=== PATIENT | female | born 1970 | race Caucasian/White ===

== ENCOUNTER 2024-12-15 14:51 | Outpatient (AMB) | payer OTHER, SELFPAY ==
--- NOTE | 2024-12-15 14:51 | A.OFFPC_ITS ---
Intake Visit Reasons: New Appt New Patient requesitng an PE Intake Note: Patient is a new patient here to establish care for DM, HTN, Cholesterol. Transferring care from [facility] (in [place]). Medical records have not been requested and have not received. Rn Traveling Required: No Internal Medicine Physician Assistant: Not Required per policy Accompanied by: Self / Same As Patient Allergies No Known Allergies Allergy (Verified 12/15/24 15:11) Medication List - Last Reconciled 12/15/24 by Brodie Stern MD blood-glucose sensor (Dexcom G7 Sensor device) As directed doxycycline monohydrate 100 mg PO DAILY dulaglutide (Trulicity) 1.5 mg subcut QWEEK ezetimibe 10 mg PO DAILY lisinopril 2.5 mg PO DAILY metformin 1,000 mg PO BID pravastatin 20 mg PO DAILY Tobacco use date assessed: 12/15/24 Dental Screening Dental Screen Date: 12/15/24 Did you have a dental visit in the last 12 months?: Yes Did you have a dental problem in the last 6 months where you did not have access to dental care?: No Was dental information given to patient?: Patient has dentist HPI New Appt New Patient requesitng an PE HPI Details 54 yr old female transferring her care f [facility]. She has history of Type 2 DM, last A1c was 6.7. 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 On Doxcycline for acne. Uptodate on Mammogram and Colonoscopy, Works in the [employer] system. Has had back surgery and Neurobiologist procedure for cervical cancer. [facility] Medical History (Updated 12/15/24 @ 15:25 by Brodie Stern MD) DM (diabetes mellitus) type II uncontrolled with eye manifestation Surgical History History of back surgery Social History Housing: Apartment Alcohol intake: current Alcohol intake frequency: holidays/special occasions only Patient Tobacco Use Status: Never used Tobacco e-Cigarette/Vaping Use: Never Used Second Hand Smoke Exposure: No service: No Current occupational status: employed Current occupation: [employer] Cognitive needs: No Hearing needs: No Vision needs: Yes (Glasses) Questionnaire PHQ-9 Over the last 2 weeks, how often have you been bothered by any of the following problems? 1. Little interest or pleasure in doing things: not at all 2. Feeling down, depressed, or hopeless: not at all 3. Trouble falling or staying asleep, or sleeping too much: not at all 4. Feeling tired or having little energy: not at all 5. Poor appetite or overeating: not at all 6. Feeling bad about yourself - or that you are a failure or have let yourself or your family down: not at all 7. Trouble concentrating on things, such as reading the newspaper or watching television: not at all 8. Moving or speaking so slowly that other people could have noticed. Or the opposite - being so fidgety or restless that you have been moving around a lot more than usual: not at all 9. Thoughts that you would be better off or of hurting yourself in some way: not at all Total score: 0 Depression Screening Interpretation: Negative Depression Screening Done: Yes Source: Developed by Drs. Ezio Coffey, Marion Ambrocio, John García and colleagues, with an educational rebecca from [employer]. Thrive Questionnaire Date Thrive assessed: 12/15/24 I am a: Patient What is your living situation today?: I have a steady place to live Within the past 12 months, did the food you bought not last and you didn't have the money to get more?: Never true Within the past 12 months, did you worry whether your food would run out before you got money to buy more?: Never true Do you have trouble paying for medicines?: No Do you have trouble getting transportation to medical appointments?: No Do you have trouble paying your heating and electricity bill?: No Do you have trouble taking care of your child, family member or friend?: No Do you have trouble with day-to-day activities such as bathing, preparing meals, shopping, managing finances, etc.?: No Are you currently unemployed and looking for a job?: No Are you interested in more education?: No Please select the resources that you would like help with: None Currently or been in a relationship where the following occur: No concerns reported THRIVE Score: 0 AUDIT C Alcohol Use Questionnaire (AUDIT-C) 1. How often do you have a drink containing alcohol?: Monthly or less 2. How many drinks containing alcohol do you have on a typical day when you are drinking?: 1 or 2 Total Score: 1 KAYE-7 AMB Questionnaire KAYE-7 Date KAYE - 7 assessed: 12/15/24 Feeling nervous, anxious, or on edge: 0 = Not at all Not being able to stop or control worryin = Not at all Worrying too much about different things: 0 = Not at all Trouble relaxin = Not at all Being so restless that it is hard to sit still: 0 = Not at all Becoming easily annoyed or irritable: 0 = Not at all Feeling afraid as if something awful might happen: 0 = Not at all Total KAYE-7 score (0-4 normal; 5-9 mild; 10-14 moderate; 15-21 severe): 0 Source: Developed by Drs. Ezio Coffey, Marion Ambrocio, John García and colleagues, with an educational rebecca from [employer]. Physical exam (Primary Care) Tobacco/Smoking Status: Tobacco use Status Patient Tobacco Use Status Never used Tobacco 12/15/24 15:01 Depression Screening Interpretation: Negative Currently or been in a relationship where the following occur: No concerns reported Telehealth Telehealth Telehealth Platform: [facility] Location of provider rendering services: practice address Location of patient: address on file Patient Identification confirmed using: Name, : Yes Telehealth method: video Patient verbally consented to treatment: Yes Patient verbally consented to billing insurance company: Yes Patient informed of any privacy concerns related to visit: Yes Coding Level of Care Code Tele New Pt Level 4 (07444) Diagnoses DM (diabetes mellitus) type II uncontrolled with eye manifestation Assessment & Plan Assessment & Plan (1) DM (diabetes mellitus) type II uncontrolled with eye manifestation: Category: Medical Plan: Medication list revd with patient. Will get her old records from [facility].
--- OUTSIDE RECORDS SUMMARY | 2024-12-15 18:43 | XMS_ITS | Encounter Summary ---
Author Organization [facility] Address [address] [place] [address] Care Team Providers Care Mental Telepathist Name Role Phone Physician, No Pcp Primary Care Provider Unavaila ble Reason for Visit * Imaging (Routine) - Pending Review Specialty Diagnoses / Procedures Referred By Edi miles Referred To Contact Radiology Diagnoses Encounter for screening mammogram for breast cancer Procedures MG Mammo Digital Screening w Sean bilat MG Mammo Digital Screening w Sean bilat Colleen Alanis CNM [address] [place] [address] [facility] Referral ID Status Reason Start Date Expiration Date V isits Requested Visits Authorized [id number] Pending Review 09/01/2024 09/01/2025 1 1 Encounter Details Date Type Department Care Team (Latest Contact Info) Description 12/10/2024 9:43 AM EST - 12/10/2024 11:59 PM [facility] Hospital Encounter Radiology Department - [address] [address] Encounter for screening mammogram for breast cancer Discharge Disposition: Home or Self Care Social History Tobacco Use Types Packs/Day Years Used Date Smoking Tobacco: Former Cigarettes 0.5 34.8 0 11/16/1982 - 09/12/2017 Smokeless Tobacco: Former Alcohol Use Standard Drinks/Week Comments Yes 0 (1 standard drink = 0.6 oz pur e alcohol) Sex and Gender Information Value Date Recorded Sex Assigned at Not on file Gender Identity Not on file Sexual Orientation Not on file documented as of this encounter Medications at Time of Discharge Medication Sig Dispensed Refills Start Date End Date albuterol HFA (PROAIR HFA ; PROVENTIL HFA ; VENTOLIN HFA) 90 mcg/actuation inhaler Inhale 2 Puffs into the lungs every 4 hours as needed for Cough or Wheezing. blood sugar diagnostic (FreeStyle Lite Strips) test strip 1 Strip by In Vitro route daily. blood-glucose sensor (DEXCOM G7 SENSOR MISC) 1 Each by Does not apply route See Admin Instructions. clindamycin phosphate 1 % gel, once daily Apply thin layer to face twice daily cyanocobalamin (VITAMIN B-12) 1,000 mcg/mL injection Inject 1 mL into the muscle every 30 days. diclofenac (Voltaren Arthritis Pain) 1 % topical gel Place 2 g onto the skin 3 times daily as needed for Other (pain) for up to 7 days. dulaglutide (Trulicity) 1.5 mg/0.5 mL pen injector injection Inject 1.5 mg into the skin once a week. ezetimibe (ZETIA) 10 mg tablet Take 1 tablet (10 mg total) by mouth 1 (one) time each day. 90 tablet 11/24/2024 fluticasone propionate (FLONASE) 50 mcg/actuation nasal spray 1 [place] by Each Nare route daily for 90 days. FREESTYLE LANCETS MISC Use with glucometer to check glucose level. 01/29/2022 isopropyl alcohoL 70 % swab 1 Each by Does not apply route daily. lisinopriL (PRINIVIL,ZESTRIL) 2.5 mg tablet Take 1 tablet (2.5 mg total) by mouth 1 (one) time each day. 90 tablet 11/24/2024 pravastatin (PRAVACHOL) 20 mg tablet Take 1 tablet (20 mg total) by mouth 1 (one) time each day. 90 tablet 11/24/2024 Trulicity 1.5 mg/0.5 mL pen injector injection INJECT 1.5 MG SUBCUTANEOUSLY ONCE A WEEK 6 mL 1 10/05/2024 documented as of this encounter Discharge Disposition Disposition Code Departure Means Destination Home or Self Care documented in this encounter Plan of Treatment Upcoming Encounters Date Type Department Care Team (Late st Contact Info) Description 01/04/2025 9:45 AM EST [facility] [address] [place] [address] Colleen Alanis CNM [address] [place] [address] 01/06/2025 11:20 AM EST Office Visit Endocrinology - [address] [phone] Marjorie Cedeno PA [address] [place] [address] 04/25/2025 9:00 AM EDT Office Visit Nephrology - [facility] [address] [place] [address] Jan Villeda MD [address] [address] documented as of this encounter Procedures Procedure Name Priority Date/Time Associated Diagnosis Comments MG MAMMO DIGITAL SCREENING W SEAN BILAT Routine 12/10/2024 9:58 AM EST Encounter for screening mammogram for breast cancer documented in this encounter Results * MG Mammo Digital Screening w Sean bilat (12/10/2024 9:58 AM EST) Anatomical Region Laterality Modality Breast Bilateral Mammography 12/12/2024 5:04 PM EST Impressions 12/12/2024 5:08 PM EST 1. No mammographic evidence of malignancy 2. Scattered fibroglandular tissue BI-RADS CATEGORY: 2 - BENIGN RECOMMENDATION: Screening bilateral mammogram is recommended in 1 year. Mammo Location: [facility], [address] [place] [address], [id number], . -------- FINAL REPORT -------- Dictated By: Ky Valenzuela Dictated Date: 12/12/2024 17:04 ET Assigned Physician: Ky Valenzuela Reviewed and Electronically Signed By: Ky Valenzuela Signed Date: 12/12/2024 17:08 ET Workstation ID: [id number] Transcribed By: Self Edit Transcribed Date: 12/12/2024 17:04 ET Narrative 12/12/2024 5:08 PM EST A BILATERAL DIGITAL 3D SCREENING MAMMOGRAPHY HISTORY: Routine screening. ??No family history of breast cancer. COMPARISON: Multiple priors dating back to 06/25/2020 Technique: Bilateral full field digital mammography (3D) was performed using standard CC and MLO projections CAD ??was used to evaluate this mammogram. FINDINGS: Right: No suspicious masses, groups of microcalcification or areas of architectural distortion identified. Stable typically benign parenchymal asymmetries. Left: No suspicious masses, groups of microcalcification or areas of architectural distortion identified. Stable typically benign parenchymal asymmetries. BREAST DENSITY: B - There are scattered areas of fibroglandular density. Procedure Note Ky Valenzuela MD - 12/12/2024 A BILATERAL DIGITAL 3D SCREENING MAMMOGRAPHY HISTORY: Routine screening. No family history of breast cancer. COMPARISON: Multiple priors dating back to 06/25/2020 Technique: Bilateral full field digital mammography (3D) was performedusing standard CC and MLO projections CAD was used to evaluate this mammogram. FINDINGS: Right: No suspicious masses, groups of microcalcification or areas ofarchitectural distortion identified. Stable typically benign parenchymalasymmetries. Left: No suspicious masses, groups of microcalcification or areas ofarchitectural distortion identified. Stable typically benign parenchymalasymmetries. BREAST DENSITY: B - There are scattered areas of fibroglandular density. IMPRESSION: 1. No mammographic evidence of malignancy 2. Scattered fibroglandular tissue BI-RADS CATEGORY: 2 - BENIGN RECOMMENDATION: Screening bilateral mammogram is recommended in 1 year. Mammo Location: [facility], [address] [place] [address], [id number], . -------- FINAL REPORT -------- Dictated By: Ky Valenzuela Dictated Date: 12/12/2024 17:04 ET Assigned Physician: yK Valenzuela Reviewed and Electronically Signed By: Ky Valenzuela Signed Date: 12/12/2024 17:08 ET Workstation ID: [id number] Transcribed By: Self Edit Transcribed Date: 12/12/2024 17:04 ET Colleen Alanis CNM IMG BI PROCEDURES documented in this encounter Visit Diagnoses Diagnosis Encounter for screening mammogram for breast cancer documented in this encounter Care Teams Mental Telepathist Relationship Specialty Start Date End Date Physician, No Pcp PCP - General 11/24/24 documented as of this encounter
--- OUTSIDE RECORDS SUMMARY | 2024-12-15 18:43 | XMS_ITS | Clinical Summary ---
Author Organization [facility] Address [address] [place] [address] Care Team Providers Care Particleboard Factory Worker Name Role Phone Dariana Pope MD Primary Care Provider [phone] Allergies No known active allergies Medications Medication Sig Dispensed Refills Start Date End Date Status ezetimibe (ZETIA) tablet 10 mg Take 1 tablet (10 mg total) by mouth daily. 0 Active pravastatin (PRAVACHOL) tablet 20 mg Take 1 tablet (20 mg total) by mouth daily. 0 Active metFORMIN (GLUCOPHAGE) tablet 500 mg Take 1 tablet (500 mg total) by mouth 2 (two) times a day with meals. 0 Active lisinopril (PRINIVIL,ZESTRIL) tablet 2.5 mg Take 1 tablet (2.5 mg total) by mouth daily. 0 Active dulaglutide (TRULICITY) 0.75 MG/0.5ML subcutaneous pen-injector Inject under the skin. 0 Active Active Problems No known active problems Social History Tobacco Use Types Packs/Day Years Used Date Smoking Tobacco: Former Cigarettes Smokeless Tobacco: Never Alcohol Use Standard Drinks/Week Comments No 0 (1 standard drink = 0.6 oz pur e alcohol) Sex and Gender Information Value Date Recorded Sex Assigned at Not on file Gender Identity Not on file Sexual Orientation Not on file Job Start Date Occupation Industry Not on file Not on file Not on file Last Filed Vital Signs Vital Sign Reading Time Taken Comments Blood Pressure 116/64 04/19/2024 4:00 PM EDT Pulse 84 04/19/2024 4:00 PM EDT Temperature 36.4 ??C (97.5 ??F) 04/19/2024 4:00 PM ED T Respiratory Rate - - Oxygen Saturation 100% 04/19/2024 4:00 PM EDT Inhaled Oxygen Concentration - - Weight 77.6 kg (171 lb) 04/19/2024 4:00 PM EDT Height 165.1 cm (5' 5 ) 03/30/2024 4:03 PM EDT Body Mass Index 28.46 03/30/2024 4:03 PM EDT Plan of Treatment Health Maintenance Due Date Last Done Comments Hepatitis C Screening 1968 Depression Screening 1980 Preventative Health Evaluation 1986 Cervical Cancer Screening (Pap Smear) 1989 Colon Cancer Screening (Colonoscopy) 2013 Breast Cancer Screening (Mammogram) 2018 Hepatitis B Vaccines (3 of 3 - 19+ 3-dose series) 10/08/2019 05/10/2019, 05/10/2019, 04/07/2019, Additional history exists COVID-19 Vaccine (2023- season) 2024 02/23/2021, 01/31/2021 Influenza Vaccine (#1) 2024 , 10/15/2022, 08/26/2021, Additional history exists DTap / Tdap / Td (3 - Td or Tdap) 05/30/2032 05/30/2022, 08/23/2012 Pneumococcal Vaccine Aged Out 08/23/2012 No long er eligible based on patient's age to complete this topic Shingrix-Zoster Vaccine Completed 07/27/20, 05/15/2023, 10/24/2020, Additional history exists RSV Ped < 20 months Aged Out No longe r eligible based on patient's age to complete this topic Care Teams Particleboard Factory Worker Relationship Specialty Start Date End Date Dariana Pope MD [address] [place] [id number] PCP - General Internal Medicine 03/30/24
--- OUTSIDE RECORDS SUMMARY | 2024-12-15 18:43 | XMS_ITS | Clinical Summary ---
Author Organization [address] Address [address] [place] [phone] Phone Care Team Providers Care [place]. Commissioner Name Role Phone Physician, No Pcp Primary Care Provider Unavaila ble Allergies No known active allergies Medications Medication Sig Dispensed Refills Start Date End Date Status Trulicity 1.5 mg/0.5 mL pen injector injection INJECT 1.5 MG SUBCUTANEOUSLY ONCE A WEEK 6 mL 1 4 Active dulaglutide (Trulicity) 1.5 mg/0.5 mL pen injector injection Inject 1.5 mg into the skin once a week. Active cyanocobalamin (VITAMIN B-12) 1,000 mcg/mL injection Inject 1 mL into the muscle every 30 days. Active isopropyl alcohoL 70 % swab 1 Each by Does not apply route daily. Active albuterol HFA (PROAIR HFA ; PROVENTIL HFA ; VENTOLIN HFA) 90 mcg/actuation inhaler Inhale 2 Puffs into the lungs every 4 hours as needed for Cough or Wheezing. Active fluticasone propionate (FLONASE) 50 mcg/actuation nasal spray 1 [place] by Each Nare route daily for 90 days. Active FREESTYLE LANCETS MISC Use with glucometer to check glucose level. 2 Active blood sugar diagnostic (FreeStyle Lite Strips) test strip 1 Strip by In Vitro route daily. Active clindamycin phosphate 1 % gel, once daily Apply thin layer to face twice daily Active diclofenac (Voltaren Arthritis Pain) 1 % topical gel Place 2 g onto the skin 3 times daily as needed for Other (pain) for up to 7 days. Active blood-glucose sensor (DEXCOM G7 SENSOR MISC) 1 Each by Does not apply route See Admin Instructions. Active lisinopriL (PRINIVIL,ZEST RIL) 2.5 mg tablet Take 1 tablet (2.5 mg total) by mouth 1 (one) time each day. 90 tablet 5 Active pravastatin (PRAVACHOL) 20 mg tablet Take 1 tablet (20 mg total) by mouth 1 (one) time each day. 90 tablet 5 Active ezetimibe (ZETIA) 10 mg tablet Take 1 tablet (10 mg total) by mouth 1 (one) time each day. 90 tablet 5 Active lisinopriL (PRINIVIL,ZEST RIL) 2.5 mg tablet TAKE 1 TABLET BY MOUTH EVERY DAY 90 tablet 4 11/22/19 25 Discontinued(Reo rder) pravastatin (PRAVACHOL) 20 mg tablet TAKE 1 TABLET BY MOUTH EVERY DAY 30 tablet 4 11/22/19 25 Discontinued(Reo rder) ezetimibe (ZETIA) 10 mg tablet TAKE 1 TABLET BY MOUTH EVERY DAY 30 tablet 4 11/22/19 25 Discontinued(Reo rder) lisinopriL (PRINIVIL,ZEST RIL) 2.5 mg tablet Take 1 Tablet by mouth daily. 11/24/19 25 Discontinued pravastatin (PRAVACHOL) 20 mg tablet Take 1 Tablet by mouth daily. 11/24/19 25 Discontinued ezetimibe (ZETIA) 10 mg tablet Take 1 Tablet by mouth daily. 11/24/19 25 Discontinued Active Problems Problem Noted Date Diagnosed Date Trigger thumb of right hand 01/20/2022 CKD (chronic kidney disease) stage 3, GFR 30-59 ml/min 12/28/2019 Microalbuminuria 04/26/2018 Pernicious anemia 03/25/2017 Iron deficiency anemia due to chronic blood loss 06/06/2016 Lactose intolerance 06/06/2016 Hypertension 05/22/2016 Radiculitis, lumbosacral 06/18/2015 Overview (10/19/2024): L5S1 discectomy 06/30 Rotator cuff tear 11/10/2013 Overview (10/19/2024): high grade partial thickness Overweight (BMI 25.0-29.9) 08/04/2013 Type II diabetes mellitus with renal manifestati ons 04/23/2012 Pure hypercholesterolemia 05/17/2007 Encounters Date Type Department Care Team Description 12/10/2024 9:43 AM EST - 12/10/2024 11:59 PM [facility] Hospital Encounter Radiology Department - [address] [phone] Encounter for screening mammogram for breast cancer Discharge Disposition: Home or Self Care from Last 3 Months Immunizations Name Administration Dates Next Due Hepatitis B (Xyopqhv-M-Uzuii , Recombivax HB-Adult) 19yo and older 05/10/2019,04/07/2019 Influenza Quadravalent, MDCK , 0.5ml, preservative free (Flucelvax) 6mo and older 09/25/2023,10/15/2022,08/26/2021,09/15,09/01/2018 Influenza Quadravalent, MDCK , 0.5ml, with preservative (Flucelvax) 6mo and older 08/20/2017 Influenza trivalent, 0.5mL, preservative free (Fluarix; FluLaval; Fluzone) ages 6mo and older (Afluria) 3 years and older 09/17/2020,09/26/2016,10/16/2015,10/03,07/20/2012,09/01/2011,09/04/2010 ,09/28/2007 MMR, measles mumps and rubel la Live (Priorix; M-M-R II) 12mo and older 08/02/2001 PPD Test 08/02/2001 Pneumococcal polysaccharide 23 valent (Pneumovax 23) 2yo and older 08/23/2012 Td Tetanus diptheria (Tdvax) 7yo and older 05/30/2022,04/07/2005 Tdap Tetanus diptheria acell ular pertussis (Boostrix; Adacel) 7yo and older 08/23/2012 Zoster recombinant (Shingrix ) 19yo and older 07/27/2023,05/15/2023,10/24/2020,06/18,09/14/2019 Surgical History Surgery Date Site/Laterality Comments OTHER SURGICAL HISTORY 03/24 PROCEDURE: MAMMOGRAM LASER ABLATION OF THE CERVIX 1987 PROCEDURE: MT CAUTERY CERVIX LASER ABLATION MULTIPLE TOOTH EXTRACTIONS PROCEDURE: HISTORICAL DENTAL EXTRACTION BACK SURGERY 06/2015 PROCEDURE: HISTORICAL BACK SURGERY; COMMENT: Dr. May COLONOSCOPY 06/27/16 PROCEDURE: HISTORICAL COLONOSCOPY; COMMENT: adenoma; repeat in 5 yrs ESOPHAGOGASTRODUODENOSCOPY PROCEDURE: MT ESOPHAGOGASTRODUODENOSCOPY TRANSORAL DIAGNOSTIC; COMMENT: Normal; with nl duodenal biopsies OTHER SURGICAL HISTORY 01/2021 Left PROCEDURE: MT EXCISION NAIL MATRIX PERMANENT REMOVAL; COMMENT: Dr Lazo Medical History Medical History Date Comments Pure hypercholesterolemia 05/17/2007 DX:Pur e hypercholesterolemia CKD (chronic kidney disease) stage 3, GFR 30-59 ml/min ([facility]) 12/28/2019 DX:CKD (chronic kidney dise ase) stage 3, GFR 30-59 ml/min ([facility]) Hypertension 05/22/2016 DX:Hypertension Iron deficiency anemia due t o chronic blood loss 06/06/2016 DX:Iron deficiency anemia du e to chronic blood loss Lactose intolerance 06/06/2016 DX:Lactose i ntolerance Microalbuminuria 04/26/2018 DX:Microalbumin uria Overweight (BMI 25.0-29.9) 08/04/2013 DX:Ov erweight (BMI 25.0-29.9) Pernicious anemia 03/25/2017 DX:Pernicious anemia Radiculitis, lumbosacral 06/18/2015 DX:Radi culitis, lumbosacral; COMMENT: L5S1 discectomy 06/30 Rotator cuff tear 11/10/2013 DX:Rotator cuf f tear; COMMENT: high grade partial thickness Type II diabetes mellitus wi th renal manifestations (CMS/HCC) 04/23/2012 DX:Type II diabetes mellitus with renal manifestations ([facility]) Family History Medical History Relation Name Comments Diabetes Father Diabetes Maternal Grandmother Other: alive and well Mother Diabetes Paternal Grandfather Breast cancer Neg Hx Ovarian cancer Neg Hx Relation Name Status Comments Daughter Melissa Alive Father Maternal Grandfather Maternal Grandmother Mother Alive Paternal Grandfather Paternal Grandmother Sister Alive Son 1 Silver Alive Son 2 Ariana Alive Son 3 Mk Alive Son 4 Mario Alive Social History Tobacco Use Types Packs/Day Years Used Date Smoking Tobacco: Former Cigarettes 0.5 34.8 0 11/16/1982 - 09/12/2017 Smokeless Tobacco: Former Alcohol Use Standard Drinks/Week Comments Yes 0 (1 standard drink = 0.6 oz pur e alcohol) Sex and Gender Information Value Date Recorded Sex Assigned at Not on file Gender Identity Not on file Sexual Orientation Not on file Obstetrics History Para Term AB IAB SAB Ectopic Multiple Livin g Live Births 5 5 5 5 Date Outcome GA Total Labor Labor/2nd/3rd Weight Sex Type Anes PTL Delfina A1 A5 Name Clin Term Term Term Term Term Last Filed Vital Signs Vital Sign Reading Time Taken Comments Blood Pressure 126/70 08/18/2024 4:08 PM EDT Pulse 96 08/18/2024 4:08 PM EDT Temperature - - Respiratory Rate - - Oxygen Saturation - - Inhaled Oxygen Concentration - - Weight 76.7 kg (169 lb) 08/18/2024 4:08 PM EDT Height 165.1 cm (5' 5 ) 08/18/2024 4:08 PM EDT Body Mass Index 28.12 08/18/2024 4:08 PM EDT Plan of Treatment Upcoming Encounters Date Type Department Care Team (Late st Contact Info) Description 01/04/2025 9:45 AM EST Office Visit Obstetrics and Gynecology - [address] [phone] Colleen Alanis [facility] [address] [place] [address] 01/06/2025 11:20 AM EST Office Visit Endocrinology - [address] [phone] Marjorie Cedeno PA [address] [place] [address] 04/25/2025 9:00 AM EDT Office Visit Nephrology - [address] [phone] Jan Villeda MD [address] [phone] Health Maintenance Due Date Last Done Comments Diabetes: Annual Foot Exam 1980 Pneumococcal Vaccine: Pediatrics (0 to 5 Years) and At-Risk Patients (6 to 64 Years) (2 of 2 - PCV) 08/23/2013 08/23/2012 Hepatitis B Vaccines (3 of 3 - 19+ 3-dose series) 10/08/2019 05/10/2019, 04/07/2019 COVID-19 Vaccine (3 - Pfizer risk series) 03/23/2021 02/23/2021, 01/31/2021 Colorectal Cancer Screening: Colonoscopy 10/25/2022 06/27/2016 HIV Screening 10/25/2022 Social Influencers of Health Screening 10/25/2022 Cervical Cancer Screening: HPV 12/01/2022 12/01/2017 Influenza Vaccine (#1) 2024 , 10/15/2022, 08/26/2021, Additional history exists Depression Screening 01/04/2025 01/04/2024 Diabetes: Blood Sugar Control Test (HGBA1C) 02/09/2025 08/12/2024, 08/12/2024, 05/13/2024 Diabetes: Annual Retina Eye Exam 03/30/2025 03/30/2024 Diabetes: Annual GFR (Glomerular Filtration Rate) 05/13/2025 05/13/2024, 05/13/2024 Hypertension/CHF/CAD Annual BMP Blood Test 05/13/2025 05/13/2024, 05/13/2024 Diabetes: Annual Urine Albumin-Creatinine Ratio (uACR) 05/17/2025 05/17/2024 Breast Cancer Screening 12/10/2026 12/10/19, 11/14/2023, 11/12/2022, Additional history exists Cholesterol Screening (Lipid Panel) 01/06/2029 01/06/2024 DTaP,Tdap,and Td Vaccines (4 - Td or Tdap) 05/30/2032 05/30/2022, 08/23/2012, 04/07/2005 MMR Vaccines Aged Out 08/02/2001 No longer eligi ble based on patient's age to complete this topic Hepatitis C Screening Completed 01/27/2022 Zoster Vaccines Completed 07/27/2023, 04/18, 10/24/2020, Additional history exists HIB Vaccines Aged Out No longer eligi ble based on patient's age to complete this topic HPV Vaccines Aged Out No longer eligi ble based on patient's age to complete this topic Hepatitis A Vaccines Aged Out No long er eligible based on patient's age to complete this topic IPV Vaccines Aged Out No longer eligi ble based on patient's age to complete this topic Meningococcal ACWY Vaccine Aged Out N o longer eligible based on patient's age to complete this topic RSV Immunization Patients Under 20 months Aged Out No longer eligible based on patient's age to complete this topic Varicella Vaccines Aged Out No longer eligible based on patient's age to complete this topic Procedures Procedure Name Priority Date/Time Associated Diagnosis Comments MG MAMMO DIGITAL SCREENING W SEAN BILAT Routine 12/10/2024 9:58 AM EST Encounter for screening mammogram for breast cancer HEMOGLOBIN A1C Routine 08/12/2024 URINE ALBUMIN CREATININE RATIO Routine 05/17/2024 ANNUAL BMP BLOOD TEST Routine 05/13/2024 DIABETES EYE EXAM Routine 03/30/2024 LIPID PANEL Routine 01/06/2024 DEPRESSION SCREENING Routine 01/04/2024 HEPATITIS C SCREENING Routine 01/27/2022 HPV Routine 12/01/2017 COLONOSCOPY Routine 06/27/2016 from Last 3 Months or Most Recently Relevant to Health Maintenance Results * MG Mammo Digital Screening w Sean bilat (12/10/2024 9:58 AM EST) Anatomical Region Laterality Modality Breast Bilateral Mammography 12/12/2024 5:04 PM EST Impressions 12/12/2024 5:08 PM EST 1. No mammographic evidence of malignancy 2. Scattered fibroglandular tissue BI-RADS CATEGORY: 2 - BENIGN RECOMMENDATION: Screening bilateral mammogram is recommended in 1 year. Mammo Location: [facility], [address], [place], [address], . -------- FINAL REPORT -------- Dictated By: Ky Valenzuela Dictated Date: 12/12/2024 17:04 ET Assigned Physician: Ky Valenzuela Reviewed and Electronically Signed By: Ky Valenzuela Signed Date: 12/12/2024 17:08 ET Workstation ID: [id number] Transcribed By: Self Edit Transcribed Date: 12/12/2024 [...] is recommended in 1 year. Mammo Location: [facility], [address] [place] [address], [id number], . -------- FINAL REPORT -------- Dictated By: Ky Valenzuela Dictated Date: 12/12/2024 17:04 ET Assigned Physician: Ky Valenzuela Reviewed and Electronically Signed By: Ky Valenzuela Signed Date: 12/12/2024 17:08 ET Workstation ID: [id number] Transcribed By: Self Edit Transcribed Date: 12/12/2024 17:04 ET Colleen Alanis [facility] IMG BI PROCEDURES * Hemoglobin A1c (08/12/2024) [facility] Hemoglobin A1C 6.2 6.5 % Blood Venous blood specimen / Unknown Historical Provider LAB BLOOD ORDERAB LES * Urine Albumin Creatinine Ratio (05/17/2024) [facility] Urine Albumin Creatinine Ratio Abstracted Historical Provider [facility] Annual BMP Blood Test (05/13/2024) [facility] Annual BMP Blood Test Abstracted Historical Provider [facility] Diabetes Eye Exam (03/30/2024) [facility] Diabetes: Annual Retina Eye Exam Abstracted Historical Provider [facility] (ABNORMAL) Lipid panel (01/06/2024) [facility] LDL/HDL Ratio 3 0 - 4 Triglycerides 174(A) 0 - 150 mg/dL Cholesterol 184 0 - 200 mg/dL HDL 55 40 mg/dL LDL Cholesterol 95 0 - 100 mg/dL Blood Venous blood specimen / Unknown Historical Provider LAB BLOOD ORDERAB LES * Depression Screening (01/04/2024) [facility] Depression Screening Abstracted Historical Provider [facility] Hepatitis C Screening (01/27/2022) [facility] Hepatitis C Screening Abstracted Historical Provider MD WAI GRAMAJO E * Cervical Cancer Screening: HPV (12/01/2017) [facility] Cervical Cancer Screening: HPV no interpreta tion,abstr acted Historical Provider MD WAI GRAMAJO E * Colonoscopy (06/27/2016) [facility] Colonoscopy no interpreta tion,abstr acted Anatomical Region Laterality Modality Other Historical Provider MD WAI GRAMAJO E from Last 3 Months or Most Recently Relevant to Health Maintenance Care Teams U.S. Commissioner Relationship Specialty Start Date End Date Physician, No Pcp PCP - General 11/24/24
== END 2024-12-15 16:16 | disposition home or self-care (01) ==
LOC: HO.HMCH 14:51
PROVIDERS: PCP Internal Medicine; Visit Provider Internal Medicine
DX: E11.319 Type 2 diabetes mellitus with unspecified diabetic retinopathy without macular edema (principal)

== ENCOUNTER → 2024-12-15 14:51 | Outpatient (BNVA) | payer OTHER, SELFPAY | PROVIDERS: PCP Internal Medicine; Visit Provider Internal Medicine ==

== ENCOUNTER 2025-05-04 10:15 | Outpatient (AMB) | payer OTHER, MEDICAID, SELFPAY ==
--- NOTE | 2025-05-04 10:38 | MHC.PC.OV ---
Vital Signs 05/04/25 10:41 Height 5 ft 4.57 in Weight 158 lb 8 oz BMI 26.7 BP 120/64 Blood Pressure Location Lt brachial Position Sitting Pulse 87 Pulse Source Pulse Oximeter Temp 97.3 F Temp Source Temporal Artery Scan Pulse Oximetry (%) 96 Oxygen Delivery Method Room Air Intake Visit Reasons: DM Intake Note: Patient is here to follow up on DM. Stained Glass Window Designer Required: No Combat Systems Operator: Not Required per policy Accompanied by: Self / Same As Patient Allergies No Known Allergies Allergy (Verified 05/04/25 10:39) Tobacco use date assessed: 05/04/25 Dental Screening Dental Screen Date: 12/15/24 [facility] Medical History (Updated 05/04/25 @ 11:30 by Brodie Stern MD) Diabetes mellitus DM (diabetes mellitus) type II uncontrolled with eye manifestation Surgical History History of colonoscopy (~06/27/16) History of back surgery Social History Housing: Apartment Alcohol intake: current Alcohol intake frequency: holidays/special occasions only Patient Tobacco Use Status: Never used Tobacco e-Cigarette/Vaping Use: Never Used Second Hand Smoke Exposure: No service: No Current occupational status: employed Current occupation: [employer] Cognitive needs: No Hearing needs: No Vision needs: Yes (Glasses) Questionnaire Thrive Questionnaire Date Thrive assessed: 12/15/24 KAYE-7 AMB Questionnaire KAYE-7 Date KAYE - 7 assessed: 12/15/24 Source: Developed by Drs. Ezio Coffey, Marion Ambrocio, John García and colleagues, with an educational rebecca from [employer]. Physical exam (Primary Care) Vital Signs: Last Vital Signs Temp 97.3 F 05/04/25 10:41 Pulse 87 05/04/25 10:41 BP 120/64 05/04/25 10:41 Pulse Ox 96 05/04/25 10:41 Oxygen Delivery Method Room Air 05/04/25 10:41 BMI result Body Mass Index 26.7 Tobacco/Smoking Status: Tobacco use Status Tobacco use date assessed 05/04/25 05/04/25 10:39 Patient Tobacco Use Status Never used Tobacco 05/04/25 10:39 e-Cigarette/Vaping Use Never Used 05/04/25 10:39 Thrive Assessment: Date of Thrive Assessment Date Thrive assessed 12/15/24 05/04/25 10:39 Results AMB Hemoglobin A1c AMB Hemoglobin A1c 6.2 % Last Edit by CHRISTIN Schrader on 05/04/25 11:01 Results Reviewed Results Reviewed: Laboratory Last Values Hgb A1c (Clinic) 6.2 % (4.0-6.0) H 05/04/25 10:38 Coding Level of Care Code Est Pt Level 4 (69236) Complex EM visit Add On G2211 Diagnoses Diabetes mellitus E11.9 Assessment & Plan Assessment & Plan (1) Diabetes mellitus: Code(s): E11.9 - Type 2 diabetes mellitus without complications Category: Medical Plan: Pt reports vomiting symptoms. Trulicity will be on hold for two months. Will reassess Plan History of Present Illness - The patient is a 55-year-old female presenting with nausea and vomiting. - The nausea and vomiting have been occurring intermittently, with episodes lasting about 20 minutes. - Symptoms began around December or January and have occurred approximately six times in the past few months. - The patient is on Trulicity and metformin for diabetes management, and there is a suspicion that Trulicity may be contributing to the symptoms. - The patient has been using Trulicity for at least two years. 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 - Family: Has a son who experiences anxiety in crowds. Review of Systems - Gastrointestinal: Reports intermittent nausea and vomiting for the past few months. - General: Denies current nausea. Physical Exam General: Cooperative and healthy appearing Nutritional Appearance: Well nourished Orientation/consciousness: Patient oriented x3 Limitations: No limitations Head: Normal to inspection General: Appearance normal, both eyes and all related structures Neck: Normal visual inspection Chest: Normal palpation of entire chest wall Respiratory: N ormal respiratory effort Neurology: Patient oriented x3, no feeling of nausea now Results Plan 1. Nausea And Vomiting - Plan to discontinue Trulicity to assess if symptoms improve. - Follow-up appointment scheduled in two months to evaluate symptom progression. - Blood work to be conducted to rule out other causes. 2. Diabetes Mellitus - Continue metformin for diabetes management. - Monitor blood glucose levels and adjust treatment as necessary. Discussion Notes I discussed with the patient the potential side effects of Trulicity, including nausea and vomiting, and the plan to discontinue it to see if symptoms improve. We agreed on a follow-up in two months and to conduct blood work to rule out other causes. I also emphasized the importance of monitoring blood glucose levels while continuing metformin. Patient Instructions - Stop taking Trulicity and observe if nausea and vomiting improve. - Schedule and attend a follow-up appointment in two months. - Complete the blood work as discussed. - Continue taking metformin and monitor blood glucose levels regularly. Orders: Orders Lipid Panel Today E11.9 - Type 2 diabetes mellitus without complications Thyroid Stimulating Hormone Today E11.9 - Type 2 diabetes mellitus without complications AMB Hemoglobin A1c Today Z13.9 - Encounter for screening, unspecified Hemoglobin A1c Today E11.9 - Type 2 diabetes mellitus without complications Basic Metabolic Panel Today E11.9 - Type 2 diabetes mellitus without complications Complete Blood Count no Diff Today E11.9 - Type 2 diabetes mellitus without complications Liver Panel Today E11.9 - Type 2 diabetes mellitus without complications Microalbumin, Random (w Creat) Today E11.9 - Type 2 diabetes mellitus without complications UA and rflx microscopic Today E11.9 - Type 2 diabetes mellitus without complications
[2025-05-04 10:41] VITALS: BP 120/64; PULSE 87; TEMP 36.3; O2SAT 96; BMI 26.7
--- OUTSIDE RECORDS SUMMARY | 2025-05-04 11:37 | XMS_ITS | Clinical Summary ---
Author Organization [facility] Address [address] [place] [address] Care Team Providers Care Dental Laboratory Supervisor Name Role Phone Dariana Pope MD Primary Care Provider [phone] Allergies No known active allergies Medications Medication [...] 84 04/19/2024 4:00 PM EDT Temperature 36.4 C (97.5 F) 04/19/2024 4:00 PM EDT Respiratory Rate - - Oxygen Saturation 100% [...] 05/10/2019, 04/07/2019, Additional history exists COVID-19 Vaccine ( season) 2024 02/23/2021, 01/31/2021 Influenza Vaccine (Season Ended) 2025 09/25/2023, 10/15/2022, 08/26/2021, Additional history exists DTap / [...] age to complete this topic Care Teams Dental Laboratory Supervisor Relationship Specialty Start Date End Date Dariana Pope MD [address] [place] [phone] PCP - General Internal Medicine 03/30/24
== END 2025-05-04 11:33 | disposition home or self-care (01) ==
LOC: HO.HMCH 10:16
PROVIDERS: PCP Internal Medicine; Visit Provider Internal Medicine
DX: E11.9 Type 2 diabetes mellitus without complications (principal); Z13.9 Encounter for screening, unspecified

== ENCOUNTER → 2025-05-04 10:15 | Outpatient (BNVA) | payer OTHER, MEDICAID, SELFPAY | PROVIDERS: PCP Internal Medicine; Visit Provider Internal Medicine | DX: E11.9 Type 2 diabetes mellitus without complications (principal); R11.2 Nausea with vomiting, unspecified | CPT/HCPCS: 83036 ==

== ENCOUNTER 2025-05-05 08:25 | Outpatient (REF) | payer OTHER, MEDICAID, SELFPAY ==
[2025-05-05 08:49] LABS: Hematocrit 32.7 % (37.0-47.0); Hemoglobin 11.1 g/dl (12.0-16.0); Mean Corpuscular HGB Conc 33.9 g/dl (31.0-35.0); Mean Corpuscular Hemoglobin 31.1 pg (27.0-33.0); Mean Corpuscular Volume 91.6 fL (80.0-98.0); Platelet Count 287 X10*3/uL (160-400); Red Blood Count 3.57 X10*6/uL (4.20-5.50); Red Cell Distribution Width 12.8 % (11.0-16.0); White Blood Count 11.3 X10*3/uL (4.8-10.8)
[2025-05-05 09:21] LABS: Estimated Average Glucose 131 mg/dL; Hemoglobin A1c % 6.2 % (<6.0)
[2025-05-05 10:47] LABS: Alanine Aminotransferase 16 U/L (0-31); Albumin Level 4.7 g/dL (3.5-5.0); Alkaline Phosphatase 68 U/L (39-117); Anion Gap 17 (12-20); Aspartate Amino Transferase 20 U/L (5-31); Bilirubin Direct 0.2 mg/dL (0.0-0.5); Bilirubin Total 0.5 mg/dL (0.0-1.0); Blood Urea Nitrogen 25 mg/dL (9-16); Calcium 9.8 mg/dL (8.4-10.2); Carbon Dioxide 22 mmol/L (22-29); Chloride 104 mmol/L (96-108); Cholesterol 203 mg/dL (<200); Estimated Glomerular Filt Rate 32; Glucose Random 133 mg/dL (60-115); HDL Cholesterol 42 mg/dL (>40); LDL Cholesterol Calculated 108 mg/dL (<100); Potassium 4.5 mmol/L (3.3-5.1); Sodium 138 mmol/L (135-145); Total Protein 7.7 g/dL (6.5-8.0); Triglycerides 266 mg/dL (<150)
[2025-05-05 10:51] LABS: Thyroid Stimulating Hormone 1.12 uIU/mL (0.32-4.0)
== END 2025-05-05 08:26 | disposition home or self-care (01) ==
LOC: HO.LAB 08:25
PROVIDERS: PCP Internal Medicine; Visit Provider Internal Medicine
DX: E11.9 Type 2 diabetes mellitus without complications (principal)
CPT/HCPCS: 36415; 80048; 80061; 80076; 83036; 84443; 85027

== ENCOUNTER 2025-05-15 13:42 | Outpatient (REF) | payer OTHER, MEDICAID, SELFPAY ==
--- NOTE | ~2025-05-15 | US_ITS ---
EXAMINATION: US KIDNEY BILATERAL HISTORY: N28.9 - Disorder of kidney and ureter, unspecified abnormal kidney function TECHNIQUE: Real-time grayscale ultrasound imaging of the kidneys was performed and images were reviewed. COMPARISON: There are no prior studies available for comparison. FINDINGS: Right kidney: The right kidney measures 10.7 x 4.8 x 6.3 cm. Renal parenchymal echotexture and thickness are normal. There are no masses. There is no hydronephrosis or renal calculi. Left Kidney: The left kidney measures 10.1 x 5.6 x 4.8 cm. Renal parenchymal echotexture and thickness are normal. There is a lower pole cyst measuring 8 x 6 x 6 mm. There is no hydronephrosis or renal calculi. US/US renal BI IMPRESSION: 8 x 6 x 6 mm left lower pole renal cyst. Otherwise unremarkable renal ultrasound. Electronically signed by: Ezio Villa MD 05/15/2025 02:11 PM EDT
--- OUTSIDE RECORDS SUMMARY | 2025-05-15 14:12 | XMS_ITS | Encounter Summary ---
Author Organization [facility] Address [address] [place] [address] Care Team Providers Care Set Up And Charger Name Role Phone Karen Curry MD Primary Care Provider [phone] Dariana Pope MD Primary Care Provider Un available Encounter Details Date Type Department Care Team Description 10/20/2016 Orders Only Oncology/Hematology - [address] [address] Josh Krueger MD Iron deficiency anemia due to chronic blood loss (Primary Dx) Social History Tobacco Use Types Packs/Day Years Used Date Smoking Tobacco: Former Cigarettes Q uit: 03/05/2011 Smokeless Tobacco: Former Comments:Started @ age 13 Alcohol Use Standard Drinks/Week Comments Yes 0 (1 standard drink = 0.6 oz pur e alcohol) 6 drinks per week Sex Assigned at Date Recorded Not on file Job Start Date Occupation Industry Not on file Not on file Not on file documented as of this encounter Plan of Treatment Scheduled Orders Name Type Priority Associated Diagnoses Orde r Schedule A THERAPEUTIC PROPHYLACTIC/DX INJECTION SUBQ/IM Immunizations/ Injection Routine Iron deficiency anemia due to chronic blood loss 6 Occurrences starting 10/22/2016 until 10/20/2017 documented as of this encounter Visit Diagnoses Diagnosis Iron deficiency anemia due to chronic blood loss- Primary Iron deficiency anemia secondary to blood loss (chronic) documented in this encounter Care Teams Set Up And Charger Relationship Specialty Start Date End Date Karen Curry MD [address] [place] [id number] PCP - General 06/23/11 01/05/23 Dariaan Pope MD [address] [place] [address] PCP - General Internal Medicine 01/06/23 documented as of this encounter
--- OUTSIDE RECORDS SUMMARY | 2025-05-15 14:12 | XMS_ITS | Clinical Summary ---
Author Organization [address] Address [address] [place] [phone] Phone Care Team Providers Care Software Solutions Architect Name Role Phone Physician, No Pcp Primary Care Provider Unavaila ble Allergies No known active allergies Medications isopropyl alcohoL 70 % swab 1 Each by Does not apply route daily. Active albuterol HFA (PROAIR HFA ; PROVENTIL HFA ; VENTOLIN HFA) 90 mcg/actuation inhaler Inhale 2 Puffs into the lungs every 4 hours as needed for Cough or Wheezing. Active fluticasone propionate (FLONASE) 50 mcg/actuation nasal spray 1 [place] by Each Nare route daily for 90 days. Active FREESTYLE LANCETS MISC Use with glucometer to check glucose level. 2 Active blood sugar diagnostic (FreeStyle Lite Strips) test strip 1 Strip by In Vitro route daily. Active clindamycin phosphate 1 % gel, once daily Apply thin layer to face twice daily Active lisinopriL (PRINIVIL,ZEST RIL) 2.5 mg tablet [...] time each day. 90 tablet 5 Active metFORMIN (GLUCOPHAGE) 500 mg tablet TAKE 2 TABLETS BY MOUTH TWICE A DAY WITH MEALS 360 tablet 1 5 Active Dexcom G7 Sensor deviceIndicati ons:Type 2 diabetes mellitus with diabetic microalbuminur ia, without long-term current use of insulin ([facility] V24, [facility] V28) USE DIRECTED. SEE ADMINISTRATION INSTRUCTIONS 6 each 1 5 Active dulaglutide (Trulicity) 1.5 mg/0.5 mL pen injector injection INJECT 1.5 MG SUBCUTANEOUSLY ONCE A WEEK 6 mL 1 5 Active Active Problems Problem Noted Date Diagnosed Date Trigger thumb of right hand 01/20/2022 CKD (chronic kidney disease) stage 3, GFR 30-59 ml/min ([facility] V24, [facility] V28) 12/28/2019 Microalbuminuria 04/26/2018 Pernicious anemia 03/25/2017 Iron deficiency anemia due to chronic blood loss 06/06/2016 Lactose intolerance 06/06/2016 Hypertension 05/22/2016 Radiculitis, lumbosacral 06/18/2015 Overview (10/19/2024): L5S1 discectomy 06/30 Rotator cuff tear 11/10/2013 Overview (10/19/2024): high grade partial thickness Overweight (BMI 25.0-29.9) 08/04/2013 Type II diabetes mellitus wi th renal manifestations ([facility] V24, [facility] V28) 04/23/2012 Pure hypercholesterolemia 05/17/2007 Encounters Date Type Department Care Team Description 04/25/2025 9:00 AM EDT Office [facility] [address] [place] [address] Jan Villeda MD Stage 3 chronic kidney disease, unspecified whether stage 3a or 3b CKD ([facility] V24, [facility] V28) (Primary Dx); Type 2 diabetes mellitus with diabetic nephropathy, without long-term current use of insulin ([facility] V24, [facility] V28) from Last 3 Months Immunizations Name Administration Dates Next Due Hepatitis B (Ixzevba-T-Pgaeu , Recombivax HB-Adult) 19yo and older 05/10/2019,04/07/2019 [...] LASER ABLATION OF THE CERVIX 1987 PROCEDURE: HI CAUTERY CERVIX LASER ABLATION MULTIPLE TOOTH EXTRACTIONS PROCEDURE: HISTORICAL DENTAL EXTRACTION BACK SURGERY 06/2015 PROCEDURE: HISTORICAL BACK SURGERY; COMMENT: Dr. May COLONOSCOPY 06/27/16 PROCEDURE: HISTORICAL COLONOSCOPY; COMMENT: adenoma; repeat in 5 yrs ESOPHAGOGASTRODUODENOSCOPY PROCEDURE: HI ESOPHAGOGASTRODUODENOSCOPY TRANSORAL DIAGNOSTIC; COMMENT: Normal; with nl duodenal biopsies OTHER SURGICAL HISTORY 01/2021 Left PROCEDURE: HI EXCISION NAIL MATRIX PERMANENT REMOVAL; COMMENT: Dr Lazo Medical History Medical History Date Comments Pure hypercholesterolemia 05/17/2007 DX:Pur e hypercholesterolemia CKD (chronic kidney disease) stage 3, GFR 30-59 ml/min ([facility] V24, [facility] V28) 12/28/2019 DX:CKD (chronic kidney disea se) stage 3, GFR 30-59 ml/min ([facility]) Hypertension 05/22/2016 DX:Hypertension Iron deficiency anemia due [...] II diabetes mellitus wi th renal manifestations (CMS/HCC V24, CMS/HCC V28) 04/23/2012 DX:Type II diabetes mellitus with renal manifestations ([facility]) Family History Medical History Relation Name Comments Diabetes Father Diabetes Maternal Grandmother Other: alive and well Mother Diabetes Paternal Grandfather Breast cancer Neg Hx Colon cancer Neg Hx Ovarian cancer Neg Hx [...] drink = 0.6 oz pur e alcohol) very rare Housing Instability Answer Date Recorde d Are you worried that in the next 2 months you may not have stable housing? No 12/31/2024 Food Access & Nutrition Answer Date Rec orded Do you have access to a vari ety of food including fruits and vegetables? Yes 12/31/2024 Access to Healthcare Answer Date Record ed Within the last 3 months, ho w many times did you visit the emergency department for your medical care? 0 12/31/2024 Health Literacy Answer Date Recorded How often do you need to hav e someone help you when you read instructions, pamphlets, or other written material from your doctor or pharmacy? Never 12/31/2024 Caregiver: How often do you need to have someone help you when you read instructions, pamphlets, or other written material from your doctor or pharmacy? Not on file 12/31/2024 Financial Risk Answer Date Recorded How hard is it for you to pa y for the very basics like food, housing, medical care, and air conditioning / heating? Not very hard 12/31/2024 Transportation Answer Date Recorded Has the lack of transportati on kept you from meetings, work, or from getting things needed for daily living? No Has the lack of transportati on kept you from medical appointments or from getting medications? No 12/31/2024 Social Isolation Answer Date Recorded How often do you feel lonely or isolated from th ose around you? Never 12/31/2024 Food Risk Answer Date Recorded Within the past 12 months we worried whether our food would run out before we got money to buy more. Never true 12/31/2024 Within the past 12 months th e food we bought just didn't last and we didn't have money to get more. Never true 12/31/2024 Dependent Care Answer Date Recorded Do you need help finding or paying for care for your loved ones. For example, child support officer or elderly care for an older adult? No 12/31/2024 Education Answer Date Recorded Do you think completing more education or training, like finishing a GED, going to college, or learning a trade, would be helpful for you? No 12/31/2024 Employment and Income Answer Date Recor ded During the last four weeks, have you been actively looking for work? No 12/31/2024 Living Situation Answer Date Recorded What is your living situation? 0 12/31/2024 Comments No Sex and Gender Information Value Date Recorded Sex Assigned at Not on file Legal Sex Female 12:27 PM EST Gender Identity Not on file Sexual Orientation Not on file Obstetrics History Para Term AB IAB SAB Ectopic Multiple Livin g Live Births 5 5 5 5 Date Outcome GA Total Labor Labor/2nd/3rd Weight Sex Type Anes PTL Delfina A1 A5 Name Clin Term Term Term Term Term Last Filed Vital Signs Vital Sign Reading Time Taken Comments Blood Pressure 129/67 04/25/2025 9:05 AM EDT Pulse 75 04/25/2025 9:05 AM EDT Temperature 36.2 C (97.2 F) 01/06/2025 11:16 AM EST Respiratory Rate - - Oxygen Saturation 100% 01/06/2025 11:16 AM EST Inhaled Oxygen Concentration - - Weight 74.4 kg (164 lb) 04/25/2025 9:05 AM EDT Height 165.1 cm (5' 5 ) 01/06/2025 11:16 AM EST Body Mass Index 27.29 01/06/2025 11:16 AM EST Plan of Treatment Upcoming Encounters Date Type Department Care Team (Late st Contact Info) Description 12/11/2025 4:30 PM EST [facility]ointment [facility] [address] [place] [id number] 05/08/2026 9:00 AM EDT Office Visit [facility] [address] [place] [phone] Jan Villeda MD [id number] [phone] Health Maintenance Due Date Last Done Comments Diabetes: Annual Foot Exam 1978 Pneumococcal Vaccine: 50+ Years (2 of 2 - PCV) 08/23/2013 08/23/2012 Pneumococcal Vaccine: Pediatrics (0 to 5 Years) and At-Risk Patients (6 to 64 Years) (2 of 2 - PCV) 08/23/2013 08/23/2012 Hepatitis B Vaccines (3 of 3 - 19+ 3-dose series) 10/08/2019 05/10/2019, 04/07/2019 COVID-19 Vaccine (3 - Pfizer risk series) 03/23/2021 02/23/2021, 01/31/2021 Colorectal Cancer Screening: Colonoscopy 10/25/2022 06/27/2016 HIV Screening 10/25/2022 Diabetes: Annual Retina Eye Exam 03/30/2025 03/30/2024 Diabetes: Annual Urine Albumin-Creatinine Ratio (uACR) 05/17/2025 05/17/2024 Diabetes: Blood Sugar Control Test (HGBA1C) 07/02/2025 01/02/2025, 08/12/2024, 08/12/2024, Additional history exists Influenza Vaccine (Season Ended) 2025 09/25/2023, 10/15/2022, 08/26/2021, Additional history exists Depression Screening 12/31/2025 12/31/2024, 01/04/20 Social Influencers of Health Screening 12/31/2025 12/31/2024 Diabetes: Annual GFR (Glomerular Filtration Rate) 01/02/2026 01/02/2025, 05/13/2024, 05/13/2024 Hypertension/CHF/CAD Annual BMP Blood Test 01/02/2026 01/02/2025, 05/13/2024, 05/13/2024 Breast Cancer Screening 12/10/2026 12/10/19, 11/14/2023, 11/12/2022, Additional history exists Cholesterol Screening (Lipid Panel) 01/02/2030 01/02/2025, 01/06/2024 Cervical Cancer Screening: HPV 01/04/2030 01/04/2025, 12/01/2017 DTaP,Tdap,and Td Vaccines (4 - Td or [...] patient's age to complete this topic Meningococcal B Vaccine Aged Out No l onger eligible based on patient's age to complete this topic RSV Immunization Patients Under 20 months Aged Out No longer eligible based on patient's age to complete this topic Varicella Vaccines Aged Out No longer eligible based on patient's age to complete this topic Procedures Procedure Name Priority Date/Time Associated Diagnosis Comments HPV WITH REFLEX GENOTYPE Routine 01/04/2025 11:40 AM EST Encounter for annual routine gynecological examination COMPREHENSIVE METABOLIC PANEL Routine 01/02/2025 1:26 PM EST Type 2 diabetes mellitus with other diabetic kidney complication, without long-term current use of insulin ([facility] V24, [facility] V28) HEMOGLOBIN A1C Routine 01/02/2025 1:26 PM EST Type 2 diabetes mellitus with other diabetic kidney complication, without long-term current use of insulin ([facility]/HCC V24, [facility]/HCC V28) LIPID PANEL WITH REFLEX TO DIRECT LDL Routine 01/02/2025 1:26 PM EST Type 2 diabetes mellitus with other diabetic kidney complication, without long-term current use of insulin ([facility] V24, [facility] V28) Pure hypercholesterolemia MAMMO DIGITAL SCREENING W SEAN BILAT Routine 12/10/2024 9:58 AM EST Encounter for screening mammogram for breast cancer URINE ALBUMIN CREATININE RATIO Routine 05/17/2024 DIABETES EYE EXAM Routine 03/30/2024 DEPRESSION SCREENING Routine 01/04/2024 HEPATITIS C SCREENING Routine 01/27/2022 COLONOSCOPY Routine 06/27/2016 from Last 3 Months or Most Recently Relevant to Health Maintenance Results * HPV with reflex genotype (01/04/2025 11:40 AM EST) HPV Negative Negative LAB MICROBIOLOGY METHOD 01/05/2025 3:14 PM EST [facility] Brushing/Spatula Cervix uteri structure / Unknown 01/04/2025 11:40 AM EST 01/05/2025 7:19 AM EST Mckayla MAHMOOD LAB MOLECULAR DIAGNOSTICS ORDER JD Final Result [facility] [address] [place] [address], [place] [phone] * (ABNORMAL) Lipid panel with reflex to direct LDL (01/02/2025 1:26 PM EST) Cholesterol 177 0 - 200 mg/dL LAB CHEMISTRY METHOD 01/02/2025 4:50 PM EST [facility] Triglycerides 208(H) 0 - 150 mg/dL LAB CHEMISTRY METHOD 01/02/2025 4:50 PM EST [facility] HDL 47 >=40 mg/dL LAB CHEMISTRY METHOD 01/02/2025 4:50 PM EST [facility] LDL Calculated 88 0 - 100 mg/dL LAB CHEMISTRY METHOD 01/02/2025 4:50 PM EST [facility] VLDL Cholesterol Tyrese 41.6 mg/dL LAB CHEMISTRY METHOD 01/02/2025 4:50 PM EST [facility] Non HDL Chol. (LDL+VLDL) 130 <145 mg/dL LAB CHEMISTRY METHOD 01/02/2025 4:50 PM EST [facility] Chol/HDL Ratio 3.8 0.0 - 4.4 LAB CHEMISTRY METHOD 01/02/2025 4:50 PM EST [facility] Blood Venous blood specimen / Unknown Venipuncture / Unknown 01/02/2025 1:26 PM EST 01/02/2025 1:26 PM EST Marjorie COLON LAB BLOOD ORDERABLES Final Resul t [facility] [address] [place] [address], [place] [phone] * Hemoglobin A1c (01/02/2025 1:26 PM EST) Hemoglobin A1C 6.2 <6.5 % LAB CHEMISTRY METHOD 01/02/2025 9:17 PM EST [facility] Mean Bld Glu Estim. 131 mg/dL LAB CHEMISTRY METHOD 01/02/2025 9:17 PM [facility] Blood Venous blood specimen / Unknown Venipuncture / Unknown 01/02/2025 1:26 PM EST 01/02/2025 1:26 PM EST us Marjorie COLON LAB BLOOD ORDERABLES Final Resul t [facility] [address] [place] [address], [place] [phone] * (ABNORMAL) Comprehensive metabolic panel (01/02/2025 1:26 PM EST) Sodium 141 133 - 145 mmol/L LAB CHEMISTRY METHOD 01/02/2025 4:50 PM [facility] Potassium 4.7 3.5 - 5.5 mmol/L LAB CHEMISTRY METHOD 01/02/2025 4:50 PM [facility] Chloride 108 96 - 110 mmol/L LAB CHEMISTRY METHOD 01/02/2025 4:50 PM [facility] CO2 24 21 - 32 mmol/L LAB CHEMISTRY METHOD 01/02/2025 4:50 PM [facility] Anion Gap 9 3 - 11 LAB CHEMISTRY METHOD 01/02/2025 4:50 PM [facility] Glucose 121(H) 70 - 100 mg/dL LAB CHEMISTRY METHOD 01/02/2025 4:50 PM [facility] BUN 14 5 - 25 mg/dL LAB CHEMISTRY METHOD 01/02/2025 4:50 PM [facility] Creatinine 1.30(H) 0.50 - 1.10 mg/dL LAB CHEMISTRY METHOD 01/02/2025 4:50 PM [facility] eGFR 48(L) >=60 mL/min/1. 73m2 LAB CHEMISTRY METHOD 01/02/2025 4:50 PM [facility] Comment:Calculation based on the Chronic Kidney Disease Epidemiology Collaboration (CKD-EPI) equation refit without adjustment for race. BUN/Creatinine Ratio 10.8 LAB CHEMISTRY METHOD 01/02/2025 4:50 PM EST [facility] Calcium 9.3 8.5 - 10.5 mg/dL LAB CHEMISTRY METHOD 01/02/2025 4:50 PM [facility] AST (SGOT) 19 10 - 42 unit/L LAB CHEMISTRY METHOD 01/02/2025 4:50 PM [facility] ALT (SGPT) 30 10 - 60 unit/L LAB CHEMISTRY METHOD 01/02/2025 4:50 PM [facility] Alkaline Phosphatase 76 42 - 121 unit/L LAB CHEMISTRY METHOD 01/02/2025 4:50 PM [facility] Total Protein 7.2 6.0 - 8.0 g/dL LAB CHEMISTRY METHOD 01/02/2025 4:50 PM EST [facility] Albumin 3.9 3.2 - 5.0 g/dL LAB CHEMISTRY METHOD 01/02/2025 4:50 PM [facility] Total Bilirubin 0.3 0.0 - 1.4 mg/dL LAB CHEMISTRY METHOD 01/02/2025 4:50 PM [facility] Blood Venous blood specimen / Unknown Venipuncture / Unknown 01/02/2025 1:26 PM EST 01/02/2025 1:26 PM EST us Marjorie COLON LAB BLOOD ORDERABLES Final Resul t [facility] [address] [place] [address], * MG Mammo Digital Screening w Sean bilat (12/10/2024 9:58 AM EST) Anatomical Region Laterality Modality Breast Bilateral Mammography 12/12/2024 5:04 PM EST Impressions 12/12/2024 5:08 PM EST 1. No mammographic evidence of malignancy 2. Scattered fibroglandular tissue BI-RADS CATEGORY: 2 - BENIGN RECOMMENDATION: Screening bilateral mammogram is recommended in 1 year. Mammo Location: [facility], [address] [place] [address], [id number], . -------- FINAL REPORT -------- Dictated By: Ky Valenzuela Dictated Date: 12/12/2024 17:04 ET Assigned Physician: Ky Valenzuela Reviewed and Electronically Signed By: Ky Valenzuela Signed Date: 12/12/2024 17:08 ET Workstation ID: [id number] Transcribed By: Self Edit Transcribed Date: 12/12/2024 17:04 ET Narrative 12/12/2024 5:08 PM EST A BILATERAL DIGITAL 3D SCREENING MAMMOGRAPHY HISTORY: Routine screening. No family history of breast cancer. COMPARISON: Multiple priors dating back to 06/25/2020 Technique: Bilateral full field digital mammography (3D) was performed using standard CC and MLO projections CAD was [...] is recommended in 1 year. Mammo Location: [facility], [address] [place] [address], [phone], . -------- FINAL REPORT -------- Dictated By: Ky Valenzuela Dictated Date: 12/12/2024 17:04 ET Assigned Physician: Ky Valenzuela Reviewed and Electronically Signed By: Ky Valenzuela Signed Date: 12/12/2024 17:08 ET Workstation ID: [id number] Transcribed By: Self Edit Transcribed Date: 12/12/2024 17:04 ET Result [facility] Colleen Alanis CNM IMG BI PROCEDURES Final Res ult * Urine Albumin Creatinine Ratio (05/17/2024) [facility] Urine Albumin Creatinine Ratio Abstracted Result [facility] Provider HEALTH MAINTENANCE Final Result * Diabetes Eye Exam (03/30/2024) [facility] Diabetes: Annual Retina Eye Exam Abstracted Result [facility] HEALTH MAINTENANCE Final Result * Depression Screening (01/04/2024) [facility] Depression Screening Abstracted Result [facility] Provider HEALTH MAINTENANCE Final Result * Hepatitis C Screening (01/27/2022) [facility] Hepatitis C Screening Abstracted Result [facility] Provider HEALTH MAINTENANCE Final Result * Colonoscopy (06/27/2016) [facility] Colonoscopy no interpreta tion,abstr acted Anatomical Region Laterality Modality Other Result [facility] Provider HEALTH MAINTENANCE Final Result from Last 3 Months or Most Recently Relevant to Health Maintenance Insurance [place] [facility] [address] [place] [address] Care Teams Software Solutions Architect Relationship Specialty Start Date End Date Physician, No Pcp PCP - General 11/24/24
--- OUTSIDE RECORDS SUMMARY | 2025-05-15 14:13 | XMS_ITS | Clinical Summary ---
Author Organization [employer] [facility] Address [address] [place] [address] Care Team Providers Care Dock Loader Name Role Phone Dariana Poep MD Primary Care Provider [phone] Allergies No known active allergies Medications Medication [...] age to complete this topic Care Teams Dock Loader Relationship Specialty Start Date End Date Dariana Pope MD [address] [place] [id number] PCP - General Internal Medicine 03/30/24
[2025-05-15 16:08] LABS: Appearance Urine Clear; Color Urine Yellow; Glucose Urine UA Negative (Negative); Leukocyte Esterase Urine Small (1+) (Negative); Nitrite Urine Negative (Negative); UMIC TRIGGER UA YES; Urine Blood Negative (Negative); Urine Ketones Trace mg/dL (Negative); Urine Protein Trace mg/dL (Neg-Trace)
[2025-05-15 16:21] LABS: Bacteria Urine Trace (None Seen); Hyaline Casts Urine 0-2 /LPF (0-2); RBC Urine 0-2 /HPF (0-2); WBC Urine 0-5 /HPF (0-5)
[2025-05-15 16:47] LABS: Creatinine Urine 176.81 mg/dL; Microalbum/Creatinine Ratio Ur 12.4 ug/mg cr (<30)
== END 2025-05-15 13:43 | disposition home or self-care (01) ==
LOC: HO.HMGCX 13:42
PROVIDERS: PCP Internal Medicine; Visit Provider Internal Medicine
DX: E11.9 Type 2 diabetes mellitus without complications (principal); N28.9 Disorder of kidney and ureter, unspecified
CPT/HCPCS: 76775; 81001; 82043; 82570

== ENCOUNTER → 2025-05-15 13:46 | Outpatient (BNV) | payer OTHER, MEDICAID, SELFPAY | PROVIDERS: PCP Internal Medicine; Visit Provider Radiology Diagnostic Radiology | DX: N28.1 Cyst of kidney, acquired (principal) | CPT/HCPCS: 76775 ==

== ENCOUNTER 2025-06-12 14:50 | Outpatient (AMB) | payer OTHER, MEDICAID, SELFPAY ==
[2025-06-12 14:56] VITALS: BP 132/84; PULSE 94; O2SAT 99; BMI 28.0
--- NOTE | 2025-06-12 14:56 | MHC.OFFVIS ---
Vital Signs 06/12/25 14:56 Height 5 ft 4.57 in Weight 165 lb 12.602 oz BMI 28.0 BP 132/84 Blood Pressure Location Lt brachial Position Sitting Pulse 94 Pulse Source Pulse Oximeter Pulse Oximetry (%) 99 Oxygen Delivery Method Room Air Intake Visit Reasons: Type 2 diabetes mellitus without complications Intake Note: Patient present today for Type 2 Diabetes Mellitus Last Diabetic eye exam: 03/2025 Last Podiatry Visit: Over 1 year ago Random Glucose: 126 mg/dl HgA1C: 66.2% 05/05/25 Sedimentationist Required: No Accompanied by: Self / Same As Patient Allergies No Known Allergies Allergy (Verified 06/12/25 15:04) Medication List - Last Reconciled 06/12/25 by Chyna Cid PA-C blood-glucose sensor (DexFreebase G7 Sensor device) As directed ezetimibe 10 mg PO DAILY lisinopril 2.5 mg PO DAILY metformin 1,000 mg PO BID pravastatin 20 mg PO DAILY HPI HPI Type 2 diabetes mellitus without complications: Details: Patient is a 55-year-old female with a significant past medical history of type 2 diabetes, chronic kidney disease, hyperlipidemia presenting today for a diabetic consultation. Endo: She was previously following with Maria Del Carmen. She was diagnosed with diabetes for approximately the last 20 years. Her most recent A1c is 6.2. She is currently managed with Trulicity 1.5 mg weekly and metformin 1000 mg twice a day. Trulicity is possibly causing n/v. She states that she was told to discontinue the Trulicity to see if her vomiting would improve and she did not have any vomiting while off with Trulicity but also thinks that possibly the vomiting started prior to her use of Trulicity. She does have an upcoming appointment with her PCP in July to further discuss this. She had to recently restart the Trulicity because her sugars were going up on just the metformin alone. She states that she did vomit again on June 07. She is trying to go to the gym and walk a lot. CGM- 18% very hyperglycemic, 28% hyperglycemic, 54% in range, 0% hypoglycemic CV: Blood pressure today in the office is 132/84. She is on lisinopril 2.5 mg daily. Cholesterol is managed with Zetia 10 mg and pravastatin 20 mg daily. Nephro: Following with Nephrology, Dr. Villeda. States that she saw him within the last couple weeks. No changes were made. Was told to follow up in 1 year. [facility] Medical History (Updated 06/12/25 @ 15:15 by Chyna Cid PA-C) Diabetes mellitus DM (diabetes mellitus) type II uncontrolled with eye manifestation Surgical History History of colonoscopy (~06/27/16) History of back surgery Social History Housing: Apartment Alcohol intake: current Alcohol intake frequency: holidays/special occasions only Patient Tobacco Use Status: Never used Tobacco e-Cigarette/Vaping Use: Never Used Second Hand Smoke Exposure: No service: No Current occupational status: employed Current occupation: [employer] Cognitive needs: No Hearing needs: No Vision needs: Yes (Glasses) Physical Exam Vital Signs: Last Vital Signs Pulse 94 06/12/25 14:56 BP 132/84 06/12/25 14:56 Pulse Ox 99 06/12/25 14:56 Oxygen Delivery Method Room Air 06/12/25 14:56 BMI result Body Mass Index 28.0 Const Orientation/consciousness: patient oriented x3 Neck Neck: Yes no lymphadenopathy Thyroid: Thyroid normal Carotids: no bruits Resp Auscultation: clear to auscultation bilaterally Cardio Rate: regular rate Rhythm: regular rhythm Heart sounds: S1 normal heart sound present and S2 normal heart sound present Peripheral pulses: dorsalis pedis present Neuro General: patient oriented x3, gait normal and no focal motor deficits Extrem Other: Monofilament sensation intact bilaterally. Vibratory sensation intact bilaterally. Skin intact. General: Yes normal to inspection Results Reviewed Results Reviewed: Laboratory Tests 05/04/25 05/05/25 10:38 08:38 Sodium 138 Potassium 4.5 Chloride 104 Carbon Dioxide 22 Anion Gap 17 BUN 25 H Creatinine 1.67 H Estimated GFR 32 Random Glucose 133 H Hgb A1c (Clinic) 6.2 H ALT 16 Triglycerides 266 H Cholesterol 203 H LDL Cholesterol, Calc 108 H HDL Cholesterol 42 Assessment & Plan Assessment & Plan (1) Type 2 diabetes with nephropathy: Code(s): E11.21 - Type 2 diabetes mellitus with diabetic nephropathy Category: Medical Plan: We will switch from Trulicity to Ozempic. Discussed risks and benefits and adverse effects of this medication. She will continue metformin at this point. Sensors reordered for her Testing supplies ordered We reviewed rule of 15. (2) CKD (chronic kidney disease) stage 3, GFR 30-59 ml/min: Code(s): N18.30 - Chronic kidney disease, stage 3 unspecified Category: Medical Plan: believes stable, just saw Dr. Villeda and was told 1 year follow up will recheck labs We did discuss starting Jardiance or Farxiga at our next appointment Orders: Orders Basic Metabolic Panel Today E11.21 - Type 2 diabetes mellitus with diabetic nephropathy, N18.30 - Chronic kidney disease, stage 3 unspecified Medications: New semaglutide (Ozempic) 0.25 mg (0.368 mL) subcut QWEEK 3 mL 1RF blood-glucose sensor (Dexcom G7 Sensor device) Use daily As directed to monitor glucose. 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 change q 10 days 3 ea 5RF E11.65 - Type 2 diabetes mellitus with hyperglycemia, Z79.4 - alf (current) use of insulin Coding Level of Care Code New Pt Level 4 (62312) Complex EM visit Add On G2211 Diagnoses Type 2 diabetes with nephropathy E11.21 CKD (chronic kidney disease) stage 3, GFR 30-59 ml/min N18.30
[2025-06-12 15:06] LABS: Glucose, Whole Blood 126 mg/dL (60-115)
--- OUTSIDE RECORDS SUMMARY | 2025-06-12 15:24 | XMS_ITS | Encounter Summary ---
Author Organization [facility] Address [address] [place] [address] Care Team Providers Care Windows Server Administrator Name Role Phone Physician, No Pcp Primary Care Provider Unavaila ble Reason for Visit * Reason Onset Date Comments Medication Problem 05/16/2025 Encounter Details Date Type Department Care Team ([facility] st Contact Info) Description 05/16/2025 Telephone Endocrinology - [place] [address] [place] [address] Ramu Velazquez PA [address] [place] [address] Medication Problem Social History Tobacco Use Types Packs/Day Years [...] care for your loved ones. For example, childcare worker or elderly care for an older adult? [...] on file documented as of this encounter Progress Notes * Amanda Yee RN - 05/23/2025 1:06 PM EDT Script send today * Galina Smith - 05/16/2025 3:52 PM EDT Medication Problem: What is the name of the medication patient is having a problem with?: DEXCOM G7 SENSOR What is the problem?: NEED NEW RX TO BILL [employer], [employer]CE[employer] ALLOW[employer] REFILLS Who is calling about the problem? : [facility] Is this a NEW medication?: yes How long has the patient been taking this medication? 03/10/25 Who prescribed this medication for the patient? RAMU VELAZQUEZ Who is patients PCP?: No Pcp Physician Payor: [facility] / Plan: [facility] [place] / Product Type: *No Product type* / documented in this encounter Plan of Treatment Upcoming Encounters Date Type Department Care Team (Late st Contact Info) Description 12/11/2025 4:30 PM EST [facility]ment [facility] [address] [phone] 05/08/2026 9:00 AM EDT Office Visit Nephrology - [facility] [address] [place] [phone] Jan Villeda MD [address] [phone] documented as of this encounter Visit Diagnoses Not on filedocumented in this encounter Additional Health Concerns Assessment Noted Time PHQ-9 Depression Total Score: 0 12/31/19 10:59 AM EST documented as of this encounter Care Teams Windows Server Administrator Relationship Specialty Start Date End Date Physician, No Pcp PCP - General 11/24/24 documented as of this encounter
--- OUTSIDE RECORDS SUMMARY | 2025-06-12 15:24 | XMS_ITS | Clinical Summary ---
Author Organization [employer] [facility] Address [address] [place] [address] Care Team Providers Care Senior Manufacturing Test Engineer Name Role Phone Dariana Pope MD Primary Care Provider [phone] Allergies No known active allergies Medications Medication [...] season) 2024 02/23/2021, 01/31/2021 Influenza Vaccine (#1) 2025 , 10/15/2022, 08/26/2021, Additional history exists DTap [...] age to complete this topic Care Teams Senior Manufacturing Test Engineer Relationship Specialty Start Date End Date Dariana Pope MD [address] [place] [id number] PCP - General Internal Medicine 03/30/24
== END 2025-06-12 15:41 | disposition home or self-care (01) ==
LOC: HO.ENCR 14:50
PROVIDERS: PCP Internal Medicine; Visit Provider Physician Assistant
DX: E11.21 Type 2 diabetes mellitus with diabetic nephropathy (principal); N18.30 Chronic kidney disease, stage 3 unspecified

== ENCOUNTER → 2025-06-12 14:50 | Outpatient (BNVA) | payer OTHER, MEDICAID, SELFPAY | PROVIDERS: PCP Internal Medicine; Visit Provider Physician Assistant | DX: E11.21 Type 2 diabetes mellitus with diabetic nephropathy (principal); E11.22 Type 2 diabetes mellitus with diabetic chronic kidney disease; N18.30 Chronic kidney disease, stage 3 unspecified; Z79.84 Long term (current) use of oral hypoglycemic drugs; Z79.4 Long term (current) use of insulin; Z79.899 Other long term (current) drug therapy | CPT/HCPCS: 82947 ==

== ENCOUNTER 2025-07-21 15:54 | Outpatient (AMB) | payer OTHER, MEDICAID, SELFPAY ==
--- OUTSIDE RECORDS SUMMARY | 2025-07-21 15:56 | XMS_ITS | Clinical Summary ---
Author Organization [employer] [facility] Address [address] [place] [address] Care Team Providers Care Gum Worker Name Role Phone Dariana Pope MD Primary Care Provider [phone] Allergies No known active allergies Medications Medication [...] 05/10/2019, 04/07/2019, Additional history exists COVID-19 Vaccine (2024- season) 2025 02/23/2021, 01/31/2021 Influenza Vaccine (#1) 2025 , [...] age to complete this topic Care Teams Gum Worker Relationship Specialty Start Date End Date Dariana Pope MD [address] [place] [id number] PCP - General Internal Medicine 03/30/24
--- OUTSIDE RECORDS SUMMARY | 2025-07-21 15:57 | XMS_ITS | Clinical Summary ---
Author Organization [address] Address [address] [place] [phone] Phone Care Team Providers Care Deputy Head Name Role Phone Brodie Stern MD Primary Care Provider [phone] Allergies No known active allergies Medications isopropyl alcohoL 70 % swab 1 Each by Does not apply route daily. Active albuterol HFA (PROAIR HFA ; PROVENTIL HFA ; VENTOLIN HFA) 90 mcg/actuation inhaler Inhale 2 Puffs into the lungs every 4 hours as needed for Cough or Wheezing. Active fluticasone propionate (FLONASE) 50 mcg/actuation nasal spray 1 [place] by Each Nare route daily for 90 [...] WITH MEALS 360 tablet 1 5 Active dulaglutide (Trulicity) 1.5 mg/0.5 mL pen injector injection INJECT 1.5 MG SUBCUTANEOUSLY ONCE A WEEK 6 mL 1 5 Active blood-glucose sensor (Dexcom G7 Sensor) deviceIndicati ons:Type 2 diabetes mellitus with diabetic microalbuminur ia, without long-term current use of insulin ([facility] V24, [facility] V28) Change sensor every 10 days 3 each 5 5 Active Active Problems Problem Noted Date Diagnosed Date Trigger thumb of right hand 01/20/2022 CKD (chronic kidney disease) stage 3, GFR 30-59 ml/min ([facility] V24, [facility] V28) 12/28/2019 Microalbuminuria 04/26/2018 Pernicious anemia 03/25/2017 Iron deficiency anemia due to chronic blood loss 06/06/2016 Lactose intolerance 06/06/2016 Hypertension 05/22/2016 Radiculitis, lumbosacral 06/18/2015 Overview (10/19/2024): L5S1 discectomy 06/30 Rotator cuff tear 11/10/2013 Overview (10/19/2024): high grade partial thickness Overweight (BMI 25.0-29.9) 08/04/2013 Type II diabetes mellitus wi th renal manifestations ([facility] V24, [facility] V28) 04/23/2012 Pure hypercholesterolemia 05/17/2007 Encounters Date Type Department Care Team Description 05/16/2025 Telephone [address] [phone] Marjorie Cedeno PA 04/25/2025 9:00 AM EDT Office [facility] [address] [place] [phone] Jan Villeda MD Stage 3 chronic kidney disease, unspecified whether stage 3a or 3b CKD ([facility] V24, [facility] V28) (Primary Dx); Type 2 diabetes mellitus with diabetic nephropathy, without long-term current use of insulin ([facility] V24, [facility] V28) from Last 3 Months Immunizations Name Administration Dates Next Due Hepatitis B (Uvpjlcm-I-Vabuf , Recombivax HB-Adult) 19yo and older 05/10/2019,04/07/2019 [...] LASER ABLATION OF THE CERVIX 1987 PROCEDURE: ID CAUTERY CERVIX LASER ABLATION MULTIPLE TOOTH EXTRACTIONS PROCEDURE: HISTORICAL DENTAL EXTRACTION BACK SURGERY 06/2015 PROCEDURE: HISTORICAL BACK SURGERY; COMMENT: Dr. May COLONOSCOPY 06/27/16 PROCEDURE: HISTORICAL COLONOSCOPY; COMMENT: adenoma; repeat in 5 yrs ESOPHAGOGASTRODUODENOSCOPY PROCEDURE: ID ESOPHAGOGASTRODUODENOSCOPY TRANSORAL DIAGNOSTIC; COMMENT: Normal; with nl duodenal biopsies OTHER SURGICAL HISTORY 01/2021 Left PROCEDURE: ID EXCISION NAIL MATRIX PERMANENT REMOVAL; COMMENT: Dr Lazo Medical History Medical History Date Comments Pure hypercholesterolemia 05/17/2007 DX:Pur e hypercholesterolemia CKD (chronic kidney disease) stage 3, GFR 30-59 ml/min ([facility] V24, [facility] V28) 12/28/2019 DX:CKD (chronic kidney disea se) stage 3, GFR 30-59 ml/min ([facility]) Hypertension 05/22/2016 DX:Hypertension Iron deficiency [...] II diabetes mellitus wi th renal manifestations ([facility] V24, [facility] V28) 04/23/2012 DX:Type II diabetes mellitus with renal manifestations ([facility]) Family History Medical History Relation [...] care for your loved ones. For example, early childhood specialist or elderly care for an older adult? [...] Care Team (Late st Contact Info) Description 08/28/2025 8:15 AM EDT Office Visit Orthopedic Surgery - [place] [address] [phone] Jace uHng, DPApril [address] [address] 12/11/2025 4:30 PM EST Appointment [facility] [address] [place] [phone] 05/08/2026 9:00 AM EDT Office Visit Nephrology - [facility] [address] [place] [phone] Jan Villeda MD [address] [phone] Health Maintenance Due Date Last Done Comments Diabetes: Annual Foot Exam 1980 Pneumococcal Vaccine: 50+ Years (2 of 2 - PCV) 08/23/2013 08/23/2012 Hepatitis B Vaccines (3 of 3 - 19+ 3-dose series) 10/08/2019 05/10/2019, 04/07/2019 COVID-19 Vaccine (3 - Pfizer risk series) 03/23/2021 02/23/2021, 01/31/2021 Colorectal Cancer Screening: Colonoscopy 10/25/2022 06/27/2016 HIV Screening 10/25/2022 Diabetes: Annual Retina Eye Exam 03/30/2025 03/30/2024 Diabetes: Blood Sugar Control Test (HGBA1C) 07/02/2025 01/02/2025, 08/12/2024, 08/12/2024, Additional history exists Influenza Vaccine (#1) 2025 , 10/15/2022, 08/26/2021, Additional history exists Social Influencers of Health Screening 12/31/2025 12/31/2024 Diabetes: Annual GFR (Glomerular Filtration Rate) 06/14/2026 06/14/2025, 01/02/2025, 05/13/2024, Additional history exists Hypertension/CHF/CAD Annual BMP Blood Test 06/14/2026 06/14/2025, 01/02/2025, 05/13/2024, Additional history exists Diabetes: Annual Urine Albumin-Creatinine Ratio (uACR) 06/15/2026 06/15/2025, 05/17/2024 Breast Cancer Screening 12/10/2026 12/10/19 25, 11/14/2023, 11/12/2022, Additional history exists Cholesterol Screening (Lipid Panel) 01/02/2030 01/02/2025, 01/06/2024 Cervical Cancer Screening: HPV 01/04/2030 01/04/2025, 12/01/2017 DTaP,Tdap,and Td Vaccines (4 - Td or Tdap) 05/30/2032 05/30/2022, 08/23/2012, 04/07/2005 MMR Vaccines Aged Out 08/02/2001 No longer eligi ble based on patient's age to complete this topic Hepatitis C Screening Completed 01/27/2022 Zoster Vaccines Completed 07/27/2023, 04/18, 10/24/2020, Additional history exists Depression Screening Completed 12/31/2024, 01/04/20 24 HIB Vaccines Aged Out No longer eligi [...] Procedure Name Priority Date/Time Associated Diagnosis Comments MICROALBUMIN CREATININE URINE RATIO Routine 06/15/2025 10:01 AM EDT Stage 3 chronic kidney disease, unspecified whether stage 3a or 3b CKD ([facility] V24, [facility] V28) BASIC METABOLIC PANEL Routine 06/14/2025 1:15 PM EDT Stage 3 chronic kidney disease, unspecified whether stage 3a or 3b CKD ([facility] V24, [facility] V28) HPV WITH REFLEX GENOTYPE Routine 01/04/2025 11:40 AM EST Encounter for annual routine gynecological examination HEMOGLOBIN A1C Routine 01/02/2025 1:26 PM EST Type 2 diabetes mellitus with other diabetic kidney complication, without long-term current use of insulin ([facility] V24, [facility] V28) LIPID PANEL WITH REFLEX TO DIRECT LDL Routine 01/02/2025 1:26 PM EST Type 2 diabetes mellitus with other diabetic kidney complication, without long-term current use of insulin ([facility] V24, [facility] V28) Pure hypercholesterolemia MG MAMMO DIGITAL SCREENING W SEAN BILAT Routine 12/10/2024 9:58 AM EST Encounter for screening mammogram for breast cancer DIABETES EYE EXAM Routine 03/30/2024 DEPRESSION SCREENING Routine 01/04/2024 HEPATITIS C SCREENING Routine 01/27/2022 COLONOSCOPY Routine 06/27/2016 from Last 3 Months or Most Recently Relevant to Health Maintenance Results * Microalbumin creatinine urine ratio (06/15/2025 10:01 AM EDT) Creatinine, Urine 178.0 mg/dL LAB CHEMISTRY METHOD 06/15/2025 1:05 PM EDT [facility] Microalb, Ur 19.5 0.0 - 29.0 mg/L LAB CHEMISTRY METHOD 06/15/2025 1:05 PM EDT [facility] Microalb/Creat Ratio 11 <30 mg/g creat LAB CHEMISTRY METHOD 06/15/2025 1:05 PM [facility] Urine Urine specimen obtained by clean catch procedure / Unknown Non-blood Collection / Unknown 06/15/2025 10:01 AM EDT 06/15/2025 10:01 AM EDT Jan Villeda MD LAB URINE ORDERABLES Final Res ult [facility] [address] [place] [address], * (ABNORMAL) Basic metabolic panel (06/14/2025 1:15 PM EDT) [facility] Sodium 138 133 - 145 mmol/L LAB CHEMISTRY METHOD 06/14/2025 4:02 PM [facility] Potassium 4.7 3.5 - 5.5 mmol/L LAB CHEMISTRY METHOD 06/14/2025 4:02 PM [facility] Chloride 105 96 - 110 mmol/L LAB CHEMISTRY METHOD 06/14/2025 4:02 PM [facility] CO2 26 21 - 32 mmol/L LAB CHEMISTRY METHOD 06/14/2025 4:02 PM [facility] Anion Gap 7 3 - 11 [facility] Glucose 113(H) 70 - 100 mg/dL LAB CHEMISTRY METHOD [facility] BUN 29(H) 5 - 25 mg/dL LAB CHEMISTRY METHOD 06/14/2025 4:02 PM [facility] Creatinine 2.01(H) 0.50 - 1.10 mg/dL LAB CHEMISTRY METHOD [facility]/14[facility]25 [facility] eGFR 28(L) >=60 mL/min/1. 73m2 LAB CHEMISTRY METHOD 06/14/2025 4:[facility] Comment:Calculation based on the Chronic Kidney Disease Epidemiology Collaboration (CKD-EPI) equation refit without adjustment for race. BUN/Creatinine Ratio 14.4 LAB CHEMISTRY METHOD 06/14[facility]2025 [facility] Calcium 10.2 8.5 - 10.5 mg/dL LAB CHEMISTRY METHOD 06/14/2025 4:02 PM EDT [facility] Blood Venous blood specimen / Unknown Venipuncture / Unknown 06/14/2025 1:15 PM EDT 06/14/2025 1:15 PM EDT Jan Villeda MD LAB BLOOD ORDERABLES Final Res ult [facility] [address] [place] [address], * HPV with reflex genotype (01/04/2025 11:40 AM EST) HPV Negative Negative LAB MICROBIOLOGY METHOD 01/05/2025 3:14 PM EST [facility] Brushing/Spatula Cervix uteri structure / Unknown 01/04/2025 11:40 AM EST 01/05/2025 7:19 AM EST Mckayla MAHMOOD LAB MOLECULAR DIAGNOSTICS ORDER JD Final Result [facility] [address] [place] [address], [place] [phone] * (ABNORMAL) Lipid panel with reflex to direct LDL (01/02/2025 1:26 PM EST) Cholesterol 177 0 - 200 mg/dL LAB CHEMISTRY METHOD 01/02/2025 4:50 PM EST [facility] Triglycerides 208(H) 0 - 150 mg/dL LAB CHEMISTRY METHOD 01/02/2025 4:50 PM EST [facility] HDL 47 >=40 mg/dL LAB CHEMISTRY METHOD 01/02/2025 4:50 PM EST [facility] LDL Calculated 88 0 - 100 mg/dL LAB CHEMISTRY METHOD 01/02/2025 4:50 PM EST [facility] VLDL Cholesterol Tyrese 41.6 mg/dL LAB CHEMISTRY METHOD 01/02/2025 4:50 PM EST [facility] Non HDL Chol. (LDL+VLDL) 130 <145 mg/dL LAB CHEMISTRY METHOD 01/02/2025 4:50 PM EST [facility] Chol/HDL Ratio 3.8 0.0 - 4.4 LAB CHEMISTRY METHOD 01/02/2025 4:50 PM EST [facility] Blood Venous blood specimen / Unknown Venipuncture / Unknown 01/02/2025 1:26 PM EST 01/02/2025 1:26 PM EST Marjorie COLON LAB BLOOD ORDERABLES Final Resul t [facility] [address] [place] [address], [place] [phone] * Hemoglobin A1c (01/02/2025 1:26 PM EST) Hemoglobin A1C 6.2 <6.5 % LAB CHEMISTRY METHOD 01/02/2025 9:17 PM EST [facility] Mean Bld Glu Estim. 131 mg/dL LAB CHEMISTRY METHOD 01/02/2025 9:17 PM EST [facility] Blood Venous blood specimen / Unknown Venipuncture / Unknown 01/02/2025 1:26 PM EST 01/02/2025 1:26 PM EST us Marjorie COLON LAB BLOOD ORDERABLES Final Resul t [facility] [address] [place] [address], [place] [phone] * MG Mammo Digital Screening w Sean bilat (12/10/2024 9:58 AM EST) Anatomical Region Laterality Modality Breast Bilateral Mammography 12/12/2024 5:04 PM EST Impressions 12/12/2024 5:08 PM EST 1. No mammographic evidence of malignancy 2. Scattered fibroglandular tissue BI-RADS CATEGORY: 2 - BENIGN RECOMMENDATION: Screening bilateral mammogram is recommended in 1 year. Mammo Location: [facility], [address] [place] [address], [id number], . -------- FINAL REPORT -------- Dictated By: Ky Valenzuela Dictated Date: 12/12/2024 17:04 ET Assigned Physician: Ky Valenzuela Reviewed and Electronically Signed By: Ky Valenzuela Signed Date: 12/12/2024 17:08 ET Workstation ID: [id number] Transcribed By: Self Edit Transcribed Date: 12/12/2024 [...] is recommended in 1 year. Mammo Location: [facility], [address] [place] [address], [id number], . -------- FINAL REPORT -------- Dictated By: Ky Valenzuela Dictated Date: 12/12/2024 17:04 ET Assigned Physician: Ky Valenzuela Reviewed and Electronically Signed By: Ky Valenzuela Signed Date: 12/12/2024 17:08 ET Workstation ID: [id number] Transcribed By: Self Edit Transcribed Date: 12/12/2024 17:04 ET Colleen Alanis CNM IMG BI PROCEDURES Final Res ult * Diabetes Eye Exam (03/30/2024) Diabetes: Annual Retina Eye Exam Abstracted Historical Provider HEALTH MAINTENANCE Final Result * Depression Screening (01/04/2024) Depression Screening Abstracted Historical Provider HEALTH MAINTENANCE Final Result * Hepatitis C Screening (01/27/2022) Hepatitis C Screening Abstracted Historical Provider HEALTH MAINTENANCE Final Result * Colonoscopy (06/27/2016) Colonoscopy no interpreta tion,abstr acted Anatomical Region Laterality Modality Other Historical Provider HEALTH MAINTENANCE Final Result from Last 3 Months or Most Recently Relevant to Health Maintenance Insurance [place]ICA[place] - [place] [facility] [address] [place] [address] Care Teams Deputy Head Relationship Specialty Start Date End Date Brodie Stern MD [facility] [address] [place] [address] [address] [place] [address] PCP - General Internal Medicine 06/17/25
--- NOTE | 2025-07-21 15:58 | A.OFFVIS_ITS ---
Vital Signs 07/21/25 15:59 Height 5 ft 4.7 in Weight 167 lb 8.821 oz BMI 28.1 BP 130/78 Blood Pressure Location Rt brachial Position Sitting Pulse 74 Pulse Source Pulse Oximeter Pulse Oximetry (%) 96 Oxygen Delivery Method Room Air Intake Visit Reasons: dm Intake Note: Patient presents today for a follow-up on Type 2 Diabetes Mellitus: Last Diabetic eye exam was on: 03/2025, [facility] Last Podiatry exam was on: Patient does not see a Vice President Of Development Most recent HbA1c: 6.2% 05/05/25 Random Glucose- 106 mg/dL, Today Accompanied by: Self / Same As Patient Allergies No Known Allergies Allergy (Verified 06/12/25 15:04) HPI HPI dm: Details: Patient is a 55-year-old female with a significant past medical history of type 2 diabetes, chronic kidney disease, hyperlipidemia presenting today for a diabetic consultation. Endo: She was previously following with [facility]. She was diagnosed with diabetes for approximately the last 20 years. Her most recent A1c is 6.2. She is on Ozempic 0.5 mg weekly and metformin 1000 mg twice a day. Tolerating ozempic well. No side effects right now Trulicity cause nausea/vomiting She is trying to go to the gym and walk a lot. CGM- 2% very hyperglycemic, 22% hyperglycemic, 76% in range, 0% hypoglycemic CV: Blood pressure today in the office is 130/78. She is on lisinopril 2.5 mg daily. Cholesterol is managed with Zetia 10 mg and pravastatin 20 mg daily. Nephro: Following with Nephrology, Dr. Villeda. States that she saw him within the last couple weeks. No changes were made. Was told to follow up in 1 year. 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 Cognitive needs: No Hearing needs: No Vision needs: Yes (Glasses) Physical Exam Vital Signs: BMI result Body Mass Index 28.1 Const Orientation/consciousness: patient oriented x3 HEENT Ears: hearing grossly normal bilaterally Neck Neck: Yes no lymphadenopathy Thyroid: Thyroid normal Carotids: no bruits Lymphatic: no lymphadenopathy noted Resp Auscultation: clear to auscultation bilaterally Cardio Rate: regular rate Rhythm: regular rhythm Heart sounds: S1 normal heart sound present and S2 normal heart sound present Peripheral pulses: dorsalis pedis present Skin General skin exam: no rashes or lesions noted Neuro General: patient oriented x3, gait normal and no focal motor deficits Extrem Other: Monofilament sensation intact bilaterally. Vibratory sensation intact bilaterally. Skin intact. General: Yes normal to inspection Results Reviewed Results Reviewed: Laboratory Tests 05/05/25 05/15/25 06/12/25 08:38 13:47 15:02 Creatinine 1.67 H Estimated GFR 32 Glucose (Clinic) 126 H Hemoglobin A1c % 6.2 H Urine Creatinine 176.81 Urine Microalbumin 22.0 Microalb/Creat Ratio 12.4 Assessment & Plan Assessment & Plan (1) Type 2 diabetes with nephropathy: Code(s): E11.21 - Type 2 diabetes mellitus with diabetic nephropathy Category: Medical Plan: increase ozempic to 1 mg weekly continue metformin 1000 mg bid labs ordered f/u 3 months or sooner prn (2) Dyslipidemia: Code(s): E78.5 - Hyperlipidemia, unspecified Category: Medical Plan: will check lipids and lfts continue zetia Orders: Orders Comprehensive Met. Panel Today E11.21 - Type 2 diabetes mellitus with diabetic nephropathy, E78.5 - Hyperlipidemia, unspecified, N18.30 - Chronic kidney disease, stage 3 unspecified Hemoglobin A1c Today E11.21 - Type 2 diabetes mellitus with diabetic nephropathy, E78.5 - Hyperlipidemia, unspecified, N18.30 - Chronic kidney disease, stage 3 unspecified, R73.01 - Impaired fasting glucose Microalbumin, Random (w Creat) Today E11.21 - Type 2 diabetes mellitus with diabetic nephropathy, E78.5 - Hyperlipidemia, unspecified, N18.30 - Chronic kidney disease, stage 3 unspecified Lipid Panel Today E11.21 - Type 2 diabetes mellitus with diabetic nephropathy, E78.5 - Hyperlipidemia, unspecified, N18.30 - Chronic kidney disease, stage 3 unspecified Medications: New semaglutide (Ozempic) 1 mg (0.75 mL) subcut QWEEK 3 mL 5RF semaglutide (Ozempic) 1 mg (0.75 mL) subcut QWEEK 9 mL 3RF semaglutide (Ozempic) 1 mg (0.75 mL) subcut QWEEK 3 mL 5RF metformin 1,000 mg (2 x 500 mg) PO BID 180 tabs 3RF Discontinued semaglutide (Ozempic) Discontinued Reason: Doctor's Order 0.25 mg (0.368 mL) subcut QWEEK 3 mL 1RF semaglutide (Ozempic) Discontinued Reason: Doctor's Order 0.5 mg (0.736 mL) subcut QWEEK 3 mL 1RF Coding Level of Care Code Est Pt Level 4 (95130) Complex EM visit Add On G2211 Diagnoses Type 2 diabetes with nephropathy E11.21 Dyslipidemia E78.5
[2025-07-21 15:59] VITALS: BP 130/78; PULSE 74; O2SAT 96; BMI 28.1
[2025-07-21 16:06] LABS: Glucose, Whole Blood 106 mg/dL (60-115)
== END 2025-07-21 16:23 | disposition home or self-care (01) ==
LOC: HO.ENCR 15:54
PROVIDERS: PCP Internal Medicine; Visit Provider Physician Assistant
DX: E11.21 Type 2 diabetes mellitus with diabetic nephropathy (principal); E78.5 Hyperlipidemia, unspecified

== ENCOUNTER → 2025-07-21 15:54 | Outpatient (BNVA) | payer OTHER, MEDICAID, SELFPAY | PROVIDERS: PCP Internal Medicine; Visit Provider Physician Assistant | DX: E11.22 Type 2 diabetes mellitus with diabetic chronic kidney disease (principal); E11.21 Type 2 diabetes mellitus with diabetic nephropathy; E78.5 Hyperlipidemia, unspecified; N18.30 Chronic kidney disease, stage 3 unspecified | CPT/HCPCS: 82947 ==

== ENCOUNTER 2025-11-13 09:37 | Outpatient (REF) | payer OTHER, MEDICAID, SELFPAY ==
--- OUTSIDE RECORDS SUMMARY | 2025-11-13 10:14 | XMS_ITS | Clinical Summary ---
Author Organization [facility] Prior to 04/15/25 Address [address] [place] [address] Care Team Providers Care Records And Information Manager Name Role Phone Dariana Pope MD Primary Care Provider [phone] Allergies No known active allergies Medications Medication [...] age to complete this topic Care Teams Records And Information Manager Relationship Specialty Start Date End Date Dariana Pope MD [address] [place] [phone] PCP - General Internal Medicine 03/30/24
--- OUTSIDE RECORDS SUMMARY | 2025-11-13 10:14 | XMS_ITS | Clinical Summary ---
Author Organization [address] Address [address] [place] [phone] Phone Care Team Providers Care Ballet Soloist Name Role Phone Brodie Stern MD Primary Care Provider [phone] Allergies No known active allergies Medications isopropyl alcohoL 70 % swab 1 Each by Does not apply route daily. Active albuterol HFA (PROAIR HFA ; PROVENTIL HFA ; VENTOLIN HFA) 90 mcg/actuation inhaler Inhale 2 Puffs into the lungs every 4 hours as needed for Cough or Wheezing. Active fluticasone propionate (FLONASE) 50 mcg/actuation nasal spray 1 [place] by Each Nare route daily for 90 [...] ia, without long-term current use of insulin ([facility] V24, [facility] V28) Change sensor every 10 [...] Encounters Date Type Department Care Team Description 08/28/2025 8:15 AM EDT Office Visit Orthopedic Surgery - [address] [phone] Jace Hung, IDALIA Controlled type 2 diabetes with neuropathy ([facility] V24, [facility] V28) (Primary Dx); Ingrown left big toenail; Xerosis cutis from Last 3 Months Immunizations Immunization Administration Dates Next Due Hepatitis B (Zxlrlgx-L-Afyxg , Recombivax HB-Adult) 19yo and older 05/10/2019,04/07/2019 [...] LASER ABLATION OF THE CERVIX 1987 PROCEDURE: [place] CAUTERY CERVIX LASER ABLATION MULTIPLE TOOTH EXTRACTIONS PROCEDURE: HISTORICAL DENTAL EXTRACTION BACK SURGERY 06/2015 PROCEDURE: HISTORICAL BACK SURGERY; COMMENT: Dr. May COLONOSCOPY 06/27/16 PROCEDURE: HISTORICAL COLONOSCOPY; COMMENT: adenoma; repeat in 5 yrs ESOPHAGOGASTRODUODENOSCOPY PROCEDURE: WY ESOPHAGOGASTRODUODENOSCOPY TRANSORAL DIAGNOSTIC; COMMENT: Normal; with nl duodenal biopsies OTHER SURGICAL HISTORY 01/2021 Left PROCEDURE: WY EXCISION NAIL MATRIX PERMANENT REMOVAL; COMMENT: Dr Lazo Medical History Medical History Date Comments Pure hypercholesterolemia 05/17/2007 DX:Pur e hypercholesterolemia CKD (chronic kidney disease) stage 3, GFR 30-59 ml/min ([facility] V24, [facility] V28) 12/28/2019 DX:CKD (chronic kidney disea se) stage 3, GFR 30-59 ml/min ([facility]) Hypertension 05/22/2016 DX:Hypertension Iron deficiency [...] DX:Type II diabetes mellitus with renal manifestations ([facility]) Family History Medical History Relation [...] Alive Son 2 Ariana Alive Son 3 Wickett Alive Son 4 Mario Alive Social History [...] Record ed Within the last 3 months, chris best many times did you visit the emergency [...] for your loved ones. 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 [...] Date Recorded What is your living situation? Unrecognized valu e 12/31/2024 Comments No Sex and Gender Information [...] - - Weight 74.4 kg (164 lb) 08/28/2025 8:16 AM EDT Height 165.1 cm (5' 5 ) 08/28/2025 8:16 AM EDT Body Mass Index 27.29 08/28/2025 8:16 AM EDT Plan of Treatment Upcoming Encounters Date Type Department Care Team (Late st Contact Info) Description 12/11/2025 4:30 PM EST [facility]ointment [facility] [address] [place] [phone] 05/08/2026 9:00 AM EDT Office Visit Nephrology - [facility] [address] [place] [phone] Jan Villeda MD [address] [facility] [address] [place] [phone] 08/28/2026 3:00 PM EDT Office Visit Orthopedic Surgery - [place] [address] [phone] Jace Hung, IDALIA [address] [address] Health Maintenance Due Date Last Done Comments Diabetes: Annual Foot Exam 1978 Pneumococcal Vaccine: 50+ Years (2 of 2 - PCV) 08/23/2013 08/23/2012 RSV Immunization Adult Patients (1 - Risk 50-74 years 1-dose series) 2018 Hepatitis B Vaccines (3 of 3 - 19+ 3-dose series) 10/08/2019 05/10/2019, 04/07/2019 COVID-19 Vaccine (3 - Pfizer risk series) 03/23/2021 02/23/2021, 01/31/2021 Colorectal Cancer Screening: Colonoscopy 06/27/2021 06/27/2016 HIV Screening 10/25/2022 Diabetes: Annual Retina [...] unspecified whether stage 3a or 3b CKD ([facility] V24, [facility] V28) BASIC METABOLIC PANEL Routine 06/14/2025 1:15 PM EDT Stage 3 chronic kidney disease, unspecified whether stage 3a or 3b CKD ([facility] V24, [facility] V28) HPV WITH REFLEX GENOTYPE Routine 01/04/2025 11:40 AM EST Encounter for annual routine gynecological examination HEMOGLOBIN A1C Routine 01/02/2025 1:26 PM EST Type 2 diabetes mellitus with other diabetic kidney complication, without long-term current use of insulin ([facility] V24, [facility] V28) LIPID PANEL WITH REFLEX TO DIRECT LDL Routine 01/02/2025 1:26 PM EST Type 2 diabetes mellitus with other diabetic kidney complication, without long-term current use of insulin ([facility] V24, [facility] V28) Pure hypercholesterolemia MG MAMMO [...] mg/dL LAB CHEMISTRY METHOD 06/15/2025 1:05 PM [facility] Microalb, Ur 19.5 0.0 - 29.0 mg/L LAB CHEMISTRY METHOD 06/15/2025 1:05 PM [facility] Microalb/Creat Ratio 11 <30 mg/g creat LAB CHEMISTRY METHOD 06/15/2025 1:05 PM [facility] Urine Urine specimen obtained by clean catch procedure / Unknown Non-blood Collection / Unknown 06/15/2025 10:01 AM EDT 06/15/2025 10:01 AM EDT us Jan Villeda MD LAB URINE ORDERABLES Final Res ult [facility] [address] [place] [address], * (ABNORMAL) Basic metabolic panel (06/14/2025 1:15 PM EDT) Sodium 138 133 - 145 mmol/L LAB CHEMISTRY METHOD 06/14/2025 4:02 PM [facility] Potassium 4.7 3.5 - 5.5 mmol/L LAB CHEMISTRY METHOD 06/14/2025 4:02 PM [facility] Chloride 105 96 - 110 mmol/L LAB CHEMISTRY METHOD 06/14/2025 4:02 PM [facility] CO2 26 21 - 32 mmol/L LAB CHEMISTRY METHOD 06/14/2025 4:02 PM [facility] Anion Gap 7 3 - 11 LAB CHEMISTRY METHOD 06/14/2025 4:02 PM [facility] Glucose 113(H) 70 - 100 mg/dL LAB CHEMISTRY METHOD 06/14/2025 4:02 PM [facility] BUN 29(H) 5 - 25 mg/dL LAB CHEMISTRY METHOD 06/14/2025 4:02 PM EDT [facility] Creatinine 2.01(H) 0.50 - 1.10 mg/dL LAB CHEMISTRY METHOD 06/14/2025 4:02 PM EDT [facility] eGFR 28(L) >=60 mL/min/1. 73m2 LAB CHEMISTRY METHOD 06/14/2025 4:02 PM EDT [facility] Comment:Calculation based on the Chronic Kidney Disease Epidemiology Collaboration (CKD-EPI) equation refit without adjustment for race. BUN/Creatinine Ratio 14.4 LAB CHEMISTRY METHOD 06/14/2025 4:02 PM EDT [facility] Calcium 10.2 8.5 - 10.5 mg/dL LAB CHEMISTRY METHOD 06/14/2025 4:02 PM EDT [facility] Blood Venous blood specimen / Unknown Venipuncture / Unknown 06/14/2025 1:15 PM EDT 06/14/2025 1:15 PM EDT us Jan Villeda MD LAB BLOOD ORDERABLES Final Res ult [facility] [address] [place] [address], [place] [phone] * HPV with reflex genotype (01/04/2025 11:40 AM EST) HPV Negative Negative LAB MICROBIOLOGY METHOD 01/05/2025 3:14 PM EST [facility] Brushing/Spatula Cervix uteri structure / Unknown 01/04/2025 11:40 AM EST 01/05/2025 7:19 AM EST Mckayla Martinez CNM LAB MOLECULAR DIAGNOSTICS ORDER JD Final Result Performing Organization Address City/[facility]/ZIP Co de Phone Number [facility] [address] [place] [address], [place] [phone] * (ABNORMAL) Lipid panel with reflex to direct LDL (01/02/2025 1:26 PM EST) Cholesterol 177 0 - 200 mg/dL LAB CHEMISTRY METHOD 01/02/2025 4:50 PM EST [facility] Triglycerides 208(H) 0 - 150 mg/dL LAB CHEMISTRY METHOD 01/02/2025 4:50 PM EST [facility] HDL 47 >=40 mg/dL LAB CHEMISTRY METHOD 01/02/2025 4:50 PM EST [facility] LDL Calculated 88 0 - 100 mg/dL LAB CHEMISTRY METHOD 01/02/2025 4:50 PM EST [facility] VLDL Cholesterol Tyrese 41.6 mg/dL LAB CHEMISTRY METHOD 01/02/2025 4:50 PM EST [facility] Non HDL Chol. (LDL+VLDL) 130 <145 mg/dL LAB CHEMISTRY METHOD 01/02/2025 4:50 PM [facility] Chol/HDL Ratio 3.8 0.0 - 4.4 LAB CHEMISTRY METHOD 01/02/2025 4:50 PM EST [facility] Blood Venous blood specimen / Unknown Venipuncture / Unknown 01/02/2025 1:26 PM EST 01/02/2025 1:26 PM EST us Marjorie COLON LAB BLOOD ORDERABLES Final Resul t [facility] [address] [place] [address], * Hemoglobin A1c (01/02/2025 1:26 PM EST) Hemoglobin A1C 6.2 <6.5 % LAB CHEMISTRY METHOD 01/02/2025 9:17 PM EST [facility] Mean Bld Glu Estim. 131 mg/dL LAB CHEMISTRY METHOD 01/02/2025 9:17 PM EST [facility] Blood Venous blood specimen / Unknown Venipuncture / Unknown 01/02/2025 1:26 PM EST 01/02/2025 1:26 PM EST us Marjorie COLON LAB BLOOD ORDERABLES Final Resul t [facility] ([facility]) [facility] [address] [place] [address], [place] [phone] * MG Mammo Digital Screening w Sean bilat (12/10/2024 9:58 AM EST) Anatomical Region Laterality Modality Breast Bilateral Mammography 12/12/2024 5:04 PM EST Impressions 12/12/2024 5:08 PM EST 1. No mammographic evidence of malignancy 2. Scattered fibroglandular tissue BI-RADS CATEGORY: 2 - BENIGN RECOMMENDATION: Screening bilateral mammogram is recommended in 1 year. Mammo Location: [facility], [address] [place] [address], [address], . -------- FINAL REPORT -------- Dictated By: Ky Valenzuela Dictated Date: 12/12/2024 17:04 ET Assigned Physician: Ky Valenzuela Reviewed and Electronically Signed By: Ky Valenzuela Signed Date: 12/12/2024 17:08 ET Workstation ID: [id number] Transcribed By: Self Edit Transcribed Date: 12/12/2024 [...] is recommended in 1 year. Mammo Location: [facility], [address] [place] [address], [phone], . -------- FINAL REPORT -------- Dictated By: Ky Valenzuela Dictated Date: 12/12/2024 17:04 ET Assigned Physician: Ky Valenzuela Reviewed and Electronically Signed By: Ky Valenzuela Signed Date: 12/12/2024 17:08 ET Workstation ID: [id number] Transcribed By: Self Edit Transcribed Date: 12/12/2024 17:04 ET Colleen Alanis CNM IMG BI PROCEDURES Final Res ult * Diabetes Eye Exam (03/30/2024) Pathologist [facility] Diabetes: Annual Retina Eye Exam Abstracted Historical Provider HEALTH MAINTENANCE Final Result * Depression Screening (01/04/2024) Pathologist [facility] Depression Screening Abstracted Historical Provider HEALTH MAINTENANCE Final Result * Hepatitis C Screening (01/27/2022) Pathologist [facility] Hepatitis C Screening Abstracted Historical Provider HEALTH MAINTENANCE Final Result * Colonoscopy (06/27/2016) HM Colonoscopy no interpreta tion,abstr acted Anatomical Region Laterality Modality Other us Historical Provider HEALTH MAINTENANCE Final Result from Last 3 Months or Most Recently Relevant to Health Maintenance Insurance [place]ICA[place] - [place] Member Subscriber Plan / Payer (Ef fective 2024-Present) Name:SEBASTIAN ESPINO Relation to Subscriber:Self Name:Sebastian Espino Payer ID:[id number] Group ID:Not on file Type:Not on file Address: [facility] [employer] [place] ATTN:[employer] [address] [place] [phone] [place] [address] [address] [place] [address] Care Teams Ballet Soloist Relationship Specialty Start Date End Date Brodie Stern MD [facility] [address] [place] [address] [address] [place] [address] PCP - General Internal Medicine 06/17/25
[2025-11-13 11:03] LABS: Alanine Aminotransferase 14 U/L (0-31); Albumin Level 4.5 g/dL (3.5-5.0); Alkaline Phosphatase 70 U/L (39-117); Anion Gap 13 (12-20); Aspartate Amino Transferase 22 U/L (5-31); Blood Urea Nitrogen 12 mg/dL (9-16); Calcium 9.3 mg/dL (8.4-10.2); Carbon Dioxide 24 mmol/L (22-29); Chloride 107 mmol/L (96-108); Cholesterol 155 mg/dL (<200); Estimated Glomerular Filt Rate 37; HDL Cholesterol 40 mg/dL (>40); Potassium 4.1 mmol/L (3.3-5.1); Sodium 140 mmol/L (135-145); Total Protein 7.4 g/dL (6.5-8.0); Triglycerides 132 mg/dL (<150)
== END 2025-11-13 09:38 | disposition home or self-care (01) ==
LOC: HO.LAB 09:37
PROVIDERS: PCP Internal Medicine; Visit Provider Physician Assistant
DX: E11.21 Type 2 diabetes mellitus with diabetic nephropathy (principal); E11.22 Type 2 diabetes mellitus with diabetic chronic kidney disease; N18.30 Chronic kidney disease, stage 3 unspecified; E78.5 Hyperlipidemia, unspecified; Z79.85 Long-term (current) use of injectable non-insulin antidiabetic drugs
CPT/HCPCS: 36415; 80053; 80061; 83036

== ENCOUNTER 2025-11-13 13:06 | Outpatient (AMB) | payer OTHER, MEDICAID, SELFPAY ==
--- NOTE | 2025-11-13 13:08 | A.OFFVIS_ITS ---
Vital Signs 11/13/25 13:09 Height 5 ft 4.7 in Weight 151 lb 7.321 oz BMI 25.4 BP 112/66 Blood Pressure Location Lt brachial Position Sitting Pulse 84 Pulse Source Pulse Oximeter Pulse Oximetry (%) 97 Oxygen Delivery Method Room Air Intake Visit Reasons: T2DM Intake Note: Patient presents today for a follow-up on Type 2 Diabetes Mellitus: Last Diabetic eye exam was on: 03/2025, [facility] Last Podiatry exam was on: Last seen 08/2025 Most recent HbA1c: 5.9%, 11/13/2025 Random Glucose- 101 mg/dL, Today Polisher Eyeglass Frames Required: No Accompanied by: Self / Same As Patient Allergies No Known Allergies Allergy (Verified 11/13/25 13:14) HPI HPI T2DM: Details: Patient is a 55-year-old female with a significant past medical history of type 2 diabetes, chronic kidney disease, hyperlipidemia presenting today for a diabetic consultation. Endo: She was previously following with [facility]. She was diagnosed with diabetes for approximately the last 20 years. Her most recent A1c is 5.9. She is on Ozempic 1 mg weekly and metformin 500 mg twice a day. Tolerating ozempic well. No side effects right now Trulicity cause nausea/vomiting She is trying to go to the gym and walk a lot. CGM- 0% very hyperglycemic, 5% hyperglycemic, 94% in range, 1% hypoglycemic CV: Blood pressure today in the office is 112/66. She is on lisinopril 2.5 mg daily. Cholesterol is managed with Zetia 10 mg and pravastatin 20 mg daily. Nephro: Following with Nephrology, Dr. Villeda. No changes were made. Was told to follow up in 1 year. 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 Cognitive needs: No Hearing needs: No Vision needs: Yes (Glasses) Physical Exam Vital Signs: Last Vital Signs Pulse 84 11/13/25 13:09 BP 112/66 11/13/25 13:09 Pulse Ox 97 11/13/25 13:09 Oxygen Delivery Method Room Air 11/13/25 13:09 BMI result Body Mass Index 25.4 Const Orientation/consciousness: patient oriented x3 HEENT Ears: hearing grossly normal bilaterally Neck Thyroid: Thyroid normal Lymphatic: no lymphadenopathy noted Resp Auscultation: clear to auscultation bilaterally Cardio Rate: regular rate Rhythm: regular rhythm Heart sounds: S1 normal heart sound present and S2 normal heart sound present Skin General skin exam: no rashes or lesions noted Neuro General: patient oriented x3, gait normal and no focal motor deficits Results Reviewed Results Reviewed: Laboratory Last Values Glucose (Clinic) 101 mg/dL (60-115) 11/13/25 13:16 Assessment & Plan Assessment & Plan (1) Type 2 diabetes with nephropathy: Code(s): E11.21 - Type 2 diabetes mellitus with diabetic nephropathy Category: Medical Plan: continue ozempic to 1 mg weekly d/c metformin labs ordered f/u 3 months or sooner prn (2) CKD (chronic kidney disease) stage 3, GFR 30-59 ml/min: Code(s): N18.30 - Chronic kidney disease, stage 3 unspecified Category: Medical Plan: stable following with nephrology Medications: Discontinued metformin Discontinued Reason: Doctor's Order 1,000 mg (2 x 500 mg) PO BID 180 tabs 3RF Coding Level of Care Code Est Pt Level 4 (88441) Add On Problem Visit Only Diagnoses Type 2 diabetes with nephropathy E11.21 CKD (chronic kidney disease) stage 3, GFR 30-59 ml/min N18.30
[2025-11-13 13:09] VITALS: BP 112/66; PULSE 84; O2SAT 97; BMI 25.4
[2025-11-13 13:20] LABS: Glucose, Whole Blood 101 mg/dL (60-115)
== END 2025-11-13 13:46 | disposition home or self-care (01) ==
LOC: HO.ENCR 13:07
PROVIDERS: PCP Internal Medicine; Visit Provider Physician Assistant
DX: E11.21 Type 2 diabetes mellitus with diabetic nephropathy (principal); N18.30 Chronic kidney disease, stage 3 unspecified